=== PATIENT | male | born 1945 | race Caucasian/White ===

== ENCOUNTER 2017-05-13 19:52 | Inpatient (IN) | payer MEDICARE ==
[~2017-05-13] VITALS: Ht 177.8 cm; Wt 7.4 kg
[2017-05-13 20:30] VITALS: BP 117/71
[2017-05-13] MEDS ORDERED: MAG HYDROX/AL HYDROX/SIMETH 30 ML ORAL.SUSP PO PRN (21:45)
[2017-05-13] MEDS ORDERED: MAGNESIUM HYDROXIDE 2,400 MG/30 ML ORAL.SUSP. PO PRN (21:45)
[2017-05-13] MEDS ORDERED: ACETAMINOPHEN 325 MG TABLET PO PRN (21:45)
[2017-05-13] MEDS ORDERED: METHYL SALICYLATE/MENTHOL TOPICAL OINTMENT 29GM TUBE. TP PRN (21:45)
[2017-05-13 22:33] LABS: BASO % 1 % (0-3); EOS # 0.1 x10^3/uL (0.0-0.7); EOS % 2 % (0-3); HEMATOCRIT 37.5 % (39.0-53.0); HEMOGLOBIN 12.6 g/dL (13.0-17.5); LYMPH # 0.6 x10^3/uL (1.0-4.8); LYMPH % 14 % (24-48); MEAN CORPUSCULAR HEMOGLOBIN 32 pg (25-35); MEAN CORPUSCULAR HGB CONC 34 g/dL (31-37); MEAN CORPUSCULAR VOLUME 95 fL (79-100); MONO # 0.6 x10^3/uL (0.0-1.1); MONO % 13 % (0-9); NEUT # 3.3 x10^3uL (1.8-7.7); NEUT % 71 % (31-73); PLATELET COUNT 178 x10^3/uL (140-400); RED BLOOD COUNT 3.96 x10^6/uL (4.30-5.70); WHITE BLOOD COUNT 4.6 x10^3/uL (4.0-11.0)
[2017-05-13 22:35] LABS: ALBUMIN 2.7 g/dL (3.4-5.0); ALBUMIN/GLOBULIN RATIO 0.7 (1.0-1.7); CALCIUM 8.5 mg/dL (8.5-10.1); CREATININE 2.2 mg/dL (0.7-1.3); GFR 29.5; POTASSIUM 3.9 mmol/L (3.5-5.1); TOTAL BILIRUBIN 0.3 mg/dL (0.2-1.0); TOTAL PROTEIN 6.5 g/dL (6.4-8.2)
[2017-05-14] MEDS ORDERED: PRAV80TA2 PO (00:15)
[2017-05-14] MEDS ORDERED: QUET50TA5 PO ×2 (00:15)
[2017-05-14] MEDS ORDERED: CLON0.5T3 PO (00:15)
[2017-05-14] MEDS ORDERED: LAMO200T2 PO (00:15)
[2017-05-14] MEDS ORDERED: QUET25TA5 PO (00:15)
[2017-05-14] MEDS ORDERED: CLON1TAB3 PO (00:15)
[2017-05-14] MEDS ORDERED: SERT50TA PO (00:15)
[2017-05-14] MEDS ORDERED: LOSA25TA4 PO (00:15)
[2017-05-14] MEDS ORDERED: PRAV80TA PO (00:15)
[2017-05-14] MEDS ORDERED: QUEtiapine 25 MG TABLET. PO PRN ×2 (00:30→19:15)
[2017-05-14] MEDS: clonazePAM 1 MG TABLET PO SCH ×2 (00:50→21:22)
[2017-05-14 00:56] VITALS: BP 119/80
[2017-05-14 06:15] VITALS: BP 90/60
[2017-05-14] MEDS ORDERED: clonazePAM 0.5 MG TABLET PO SCH (09:00)
[2017-05-14] MEDS ORDERED: QUEtiapine 50 MG TABLET. PO SCH (09:00)
[2017-05-14 09:31] VITALS: BP 118/82
[2017-05-14] MEDS: SERTRALINE 25 MG TABLET. PO SCH (09:33)
[2017-05-14] MEDS: LOSARTAN 25 MG TABLET. PO SCH (09:33)
[2017-05-14] MEDS: lamoTRIgine 100 MG TABLET. PO SCH (09:33)
[2017-05-14 12:03] LABS: THYROID STIM HORMONE (TSH) 1.139 uIU/mL (0.358-3.740)
[2017-05-14 15:31] LABS: BACTERIA,URINE 0 /HPF (0-FEW); BILIRUBIN,URINE NEG (NEG); CLARITY,URINE CLEAR; COLOR,URINE STRAW; GLUCOSE,URINE NEG (NEG); NITRITE,URINE NEG (NEG); RBC,URINE 0 /HPF (0-2); SQUAMOUS EPITHELIAL CELL,UR OCC /LPF; UROBILINOGEN,URINE 0.2 mg/dL (0.2 mg/dL); WBC,URINE OCC /HPF (0-4)
[2017-05-14 16:00] VITALS: BP 103/73
[2017-05-14 18:11] LABS: T3 TOTAL 59 ng/dL (71-180); THYROXINE 4.2 ug/dL (4.5-12.0)
[2017-05-14] MEDS: CHOLECALCIFEROL (VITAMIN D3) 50,000 UNIT CAPSULE PO SCH (18:34)
[2017-05-14] MEDS ORDERED: QUEtiapine 25 MG TABLET. PO SCH (21:00)
[2017-05-14] MEDS: ATORVASTATIN CALCIUM 20 MG TABLET PO SCH (21:22)
[2017-05-14] MEDS: LURASIDONE 40 MG TABLET. PO SCH (21:22)
[2017-05-15 01:12] LABS: HEMOGLOBIN A1C 5.5 % (4.8-5.6)
[2017-05-15 06:03] VITALS: BP 118/72
[2017-05-15] MEDS: LOSARTAN 25 MG TABLET. PO SCH (08:19)
[2017-05-15] MEDS: lamoTRIgine 100 MG TABLET. PO SCH (08:19)
[2017-05-15] MEDS: SERTRALINE 25 MG TABLET. PO SCH (08:20)
--- NOTE | 2017-05-15 13:08 | CONS ---
DATE OF CONSULTATION: 05/14/2017 REASON FOR CONSULTATION: Medical management. HISTORY OF PRESENT ILLNESS: The patient is a 71-year-old male patient with gary, who apparently was seen in [facility]. Apparently, he is very unstable and his episode might have been started with prednisone that was given to him in 04/29/5017 or maybe changed his medication. Basically, he was evaluated at the [facility] and from there he was transferred [facility] for inpatient psychiatric stabilization. He apparently was living at home and has been manic, rambling his thoughts, upset, agitated regarding family business, cursing, recently tapered off prednisone, voices self-harm. PAST MEDICAL HISTORY: Significant for chronic renal insufficiency related to treatment with lithium, type 2 diabetes, hypertension, urine hesitancy. PAST SURGICAL HISTORY: Significant for decompressive laminectomy of L4-L5 and L5-S1 with interspinous fixation on 03/23/2017. PAST PSYCHIATRIC HISTORY: Significant for bipolar disorder. ALLERGIES: He is allergic to BACTRIM and TEGRETOL. FAMILY HISTORY: Significant for Alzheimer's disease in his father. His mother had ovarian cancer and congestive heart failure. His siblings are healthy as far as he knows. SOCIAL HISTORY: He is , does not smoke. Drinks alcohol rarely and does not use any recreational drugs. REVIEW OF SYSTEMS: As per history of present illness. MEDICATIONS: He is currently on following medications: Clonazepam 0.5 mg daily, clonazepam 1 mg at bedtime, lamotrigine 200 mg daily, losartan potassium 25 mg daily, pravastatin 80 mg at bedtime, quetiapine fumarate 50 mg daily, quetiapine fumarate 75 mg at bedtime and quetiapine 25 mg every 6 hours as needed, sertraline 75 mg daily. PHYSICAL EXAMINATION: GENERAL: When I examined him, he was sitting on the edge of the bed comfortably, in no apparent respiratory distress, pale, but no jaundice, cyanosis, or thyromegaly. No jugular venous distension. No limb edema. VITAL SIGNS: His heart rate was 74, blood pressure was 103/73, temperature was 98.1, respiratory rate was 16, and oxygen saturation was 98%. HEAD, EYES, EARS, NOSE, AND THROAT: Showed normocephalic, atraumatic. NECK: Supple. HEART: Showed normal first and second sounds. No gallop, rub or murmur. CHEST: Clear to auscultation. No crepitation or rhonchi. ABDOMEN: Distended, soft, nontender. No guarding or rigidity. No organomegaly. Hernial orifice intact. Bowel sounds normal. NEUROLOGIC: He is awake, alert, responding appropriately. All cranial nerves intact. EXTREMITIES: He moves all extremities without difficulty, ambulates without assistance or assistive devices. LABORATORY DATA: Showed a white cell count of 4600, hemoglobin 12.6, hematocrit 37.5, MCV 95 and platelet count 278,000. His chemistry showed a serum sodium 135, potassium 3.9, chloride 101, bicarbonate 25, anion gap of 9, BUN 45, creatinine 2.2, estimated GFR was 29 mL per minute. His glucose 94, calcium was 8.5, magnesium 2. Serum iron 20, TIBC 153, percent saturation 13. Total bilirubin, AST, ALT, alkaline phosphatase were normal. Total protein 6.7, albumin 2.7. His triglycerides were 109, total cholesterol 108, LDL was 62, VLDL was 21, HDL was 25 and the ratio was 4. His vitamin D was 521 pg/mL and 25-hydroxyvitamin was 24, which is low. TSH was 1.39. Urinalysis was essentially unremarkable. IMPRESSION: In summary, this is a 71-year-old male patient who is apparently manic and he is stable. He was [facility]. He has multiple medical problems including chronic renal insufficiency related to lithium toxicity. He is known to have type 2 diabetes, apparently diet controlled; hypertension; urinary hesitancy. All his vital signs seemed to be stable. Apart from vitamin D and deficiency and chronic renal disease, the patient seems to be stable. His hemoglobin A1c is not available yet and his blood sugar seems to be within acceptable range. I have started him on ergocalciferol 50,000 units once a week. We will follow with his lab work and make any necessary recommendation. Thank you, Dr. Quintanilla for allowing me to participate in the care of this patient. SHENA VILLA MD DR: OMARI/lore JOB#: [id number] / [id number]
[2017-05-15 16:03] VITALS: BP 107/71
--- NOTE | 2017-05-15 17:24 | PSYEV ---
DATE OF SERVICE: 05/14/2017 PSYCHIATRIC EVALUATION REASON FOR ADMISSION: This 71-year-old male was admitted to [facility] from [facility]. Apparently, he was living at home with his . The patient apparently was exhibiting manic symptoms, traveling, racing thoughts, visual and auditory hallucinations and increased confusion. The patient recently was on prednisone, which was tapered off. The patient also expressed thoughts of self-harm. HISTORY OF PRESENT ILLNESS: The patient admits he had a diagnosis of manic depression, diagnosed about 30 years ago, apparently was hospitalized after he had a manic episode and he was on lithium at least for 10 years and become lithium toxic. Apparently, they had to discontinue and start him on Lamictal. The patient states he had done fairly well without any problems and recently he admits to having problems with insomnia, not sleeping, very typical of his past episode where every 2 minutes, he has to be awake because his mind was racing all the time. The patient also admitted to hearing voices, mostly lutheran music in his head that he could not turn off. The patient is also having some visual hallucinations, paranoia, brief periods of loss of touch with reality. The patient states he went without sleep for several days. PAST PSYCHIATRIC HISTORY: One prior hospitalization, but patient is unable to name the hospital. It was about 30 years ago and that was the time he was diagnosed with bipolar disorder. 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 The patient denies of any suicidal thoughts at this time. CURRENT MEDICATIONS: Klonopin, according to him, he has been taking up to 2.5 mg daily at least for the past 5 years. Zoloft 75 mg daily, Seroquel 75 mg daily, and Lamictal 200 mg daily. ALLERGIES: The patient also stated that he was allergic to TEGRETOL. PAST MEDICAL HISTORY: History of diabetes, diet controlled; hypertension, chronic renal insufficiency, and generalized muscular pain. PSYCHOSOCIAL HISTORY: The patient is from [place] and states he has high school education. 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 The patient denies of any major trauma in his childhood. The patient describes himself as a perfectionist and he has certain ritual behaviors. The patient has always had problems with racing thoughts. The patient has 4 siblings and according to him, no one diagnosed with bipolar disorder. The patient admits to drinking occasionally in his early years, but never had any problems. The patient claims still working in the form. FAMILY HISTORY: As stated above. No history of alcoholism. No history of bipolar disorder. No history of suicide in the family. MENTAL STATUS EXAMINATION: The patient appeared to be of his stated age, casually dressed, has some problems with hearing, has hearing aids. His vision is normal. The patient did not show any involuntary movements. His behavior was appropriate except at times he was somewhat irritable and restless. His speech is clear, spontaneous with normal rate and rhythm. His affect and mood showed he is very anxious, worried, able to identify some of his problems, stating that his problem started with loss of sleep, he was getting more confused and started having hallucinations, both auditory and visual. Denies of having any suicidal or homicidal thoughts at this time. His speech was normal. The patient admits to hearing lutheran music continuously in his head, having difficulty dealing with that. The patient also admits to being irritable, espinoza, low frustration tolerance. The patient is oriented to time, place and person. His short term memory is intact, able to recall 3 objects in 5 minutes. His long-term memory is also intact including he was able to state that he was at [facility] for 17 days, 30 years ago for a manic episode. The patient was able to give a clear account of his past medical history. The patient's judgment fair. Insight fair. Strength fairly in good health, good communication skills, supportive family. DIAGNOSES: AXIS I: Bipolar disorder type 1, manic with psychotic symptoms. AXIS II: None. AXIS III: Hypertension, chronic renal insufficiency, diabetes, diet controlled and recently took prednisone and was tapered off. INITIAL TREATMENT PLAN: The patient will have a physical exam, routine lab work including CBC, chem profile, urinalysis. The patient will be encouraged to attend all the activities. The patient's Klonopin to be decreased to 1 mg at night. The patient will be taken off his Seroquel 75 mg and started on Latuda 40 mg at night. Continue on the Zoloft 75 mg daily. The patient was seen by the psychiatrist daily. DISCHARGE CRITERIA: The patient will be under observation. We will adjust the medication accordingly and the patient will be considered for discharge or return home 3 days of continuous stability and without any manic symptoms or psychosis. KASH CATES MD DR: RUSTAM/nts JOB#: [id number] / [id number]
--- NOTE | 2017-05-15 18:44 | OP ---
DATE OF SURGERY: 05/15/2017 SUBJECTIVE: The patient was seen today, met with the staff, chart reviewed. The patient has been staying in the room most of the time, less confused. The patient able to describe some of his problems including racing thoughts, not able to think clearly, and also not sleeping at all, and also being delusional and paranoid, including auditory hallucinations. The patient admits that some of his problems have improved. OBSERVATION: The vital signs are stable. The patient is not having any side effects from the medications. No major physical complaints. The patient is participating in activities. His appetite has improved. The patient continues to be on Seroquel 25 mg q.4 hours p.r.n., Lamictal 200 mg daily, Zoloft 75 mg at night, clonazepam 1 mg at night, considering starting the patient on Latuda. LABORATORY DATA: The patient's lab reviewed. Hemoglobin of 12.6. The patient's low iron, BUN 45, creatinine 2.2, sodium was 135. The patient is not having any other physical complaints. ASSESSMENT: Bipolar disorder, manic, severe with psychotic symptoms. PLAN: To continue with the treatment. We will consider starting him on Latuda. KASH CATES MD DR: RUSTAM/lore JOB#: [id number] / [id number]
[2017-05-15] MEDS: clonazePAM 1 MG TABLET PO SCH (19:19)
[2017-05-15] MEDS: ATORVASTATIN CALCIUM 20 MG TABLET PO SCH (19:19)
[2017-05-15] MEDS: LURASIDONE 40 MG TABLET. PO SCH (19:19)
[2017-05-15] MEDS ORDERED: LURASIDONE 40 MG TABLET. PO SCH (21:00)
[2017-05-16 06:08] VITALS: BP 121/75
[2017-05-16] MEDS: SERTRALINE 25 MG TABLET. PO SCH (08:59)
[2017-05-16] MEDS: lamoTRIgine 100 MG TABLET. PO SCH (08:59)
[2017-05-16] MEDS: LOSARTAN 25 MG TABLET. PO SCH (09:00)
--- NOTE | 2017-05-16 14:04 | PN ---
DATE: 05/15/2017 NO DICTATION. KASH CATES MD DR: Samia JOB#: [id number] / [id number]
[2017-05-16 16:03] VITALS: BP 118/79
[2017-05-16] MEDS: ATORVASTATIN CALCIUM 20 MG TABLET PO SCH (19:47)
[2017-05-16] MEDS: clonazePAM 1 MG TABLET PO SCH (19:48)
[2017-05-16] MEDS: LURASIDONE 40 MG TABLET. PO SCH (20:03)
[2017-05-17 06:13] VITALS: BP 122/62
[2017-05-17] MEDS: lamoTRIgine 100 MG TABLET. PO SCH (09:27)
[2017-05-17] MEDS: LOSARTAN 25 MG TABLET. PO SCH (09:27)
[2017-05-17] MEDS: SERTRALINE 25 MG TABLET. PO SCH (09:33)
--- NOTE | 2017-05-17 11:27 | PN ---
DATE: 05/16/2017 SUBJECTIVE: The patient was seen today, met with the staff, chart reviewed. The patient's dictation for the progress note yesterday was last ____ on the medical records. Therefore, it is the report both for 05/16/2017 and 05/17/2017. The patient's problem also discussed with the staff, treatment review completed. I also spoke with his . The patient continues to show improvement. She is less anxious and tense, still having racing thoughts and having some difficulty with sleep. OBSERVATION: VITAL SIGNS: Temperature 97.9, blood pressure 121/75, pulse 61, respirations 16, O2 saturation 99%. Slept about 6 hours last night. The patient is not presenting with any major physical problems at this time. LABORATORY DATA: The patient's lab reviewed, no changes. The patient's BUN was 45, creatinine was 2.2. MEDICATIONS: The patient's current medications include Lipitor 20 mg daily, Seroquel 25 mg q. 4 hours p.r.n., Lamictal 200 mg daily, Zoloft 75 mg daily, clonazepam 1 mg at night. The patient ____. The patient did not have any falls. ASSESSMENT: Bipolar disorder type 1, manic, with psychotic symptoms. Plan is to continue with the treatment. KASH CATES MD DR: RUSTAM/lore JOB#: [id number] / [id number]
[2017-05-17 15:27] VITALS: BP 134/81
[2017-05-17] MEDS: LURASIDONE 40 MG TABLET. PO SCH (19:49)
[2017-05-17] MEDS: ATORVASTATIN CALCIUM 20 MG TABLET PO SCH (19:49)
[2017-05-17] MEDS: clonazePAM 1 MG TABLET PO SCH (19:49)
[2017-05-18 06:17] VITALS: BP 113/66
[2017-05-18 09:27] LABS: BASO # 0.1 x10^3/uL (0.0-0.2); BASO % 1 % (0-3); EOS # 0.2 x10^3/uL (0.0-0.7); EOS % 4 % (0-3); HEMATOCRIT 36.8 % (39.0-53.0); HEMOGLOBIN 12.4 g/dL (13.0-17.5); LYMPH # 1.2 x10^3/uL (1.0-4.8); LYMPH % 25 % (24-48); MEAN CORPUSCULAR HEMOGLOBIN 32 pg (25-35); MEAN CORPUSCULAR HGB CONC 34 g/dL (31-37); MEAN CORPUSCULAR VOLUME 94 fL (79-100); MONO # 0.4 x10^3/uL (0.0-1.1); MONO % 9 % (0-9); NEUT # 2.8 x10^3uL (1.8-7.7); NEUT % 61 % (31-73); PLATELET COUNT 231 x10^3/uL (140-400); RED CELL DISTRIBUTION WIDTH 12.7 % (11.5-14.5); WHITE BLOOD COUNT 4.6 x10^3/uL (4.0-11.0)
[2017-05-18] MEDS: SERTRALINE 25 MG TABLET. PO SCH (09:29)
[2017-05-18] MEDS: lamoTRIgine 100 MG TABLET. PO SCH (09:29)
[2017-05-18 09:37] LABS: ALBUMIN 2.9 g/dL (3.4-5.0); ALBUMIN/GLOBULIN RATIO 0.8 (1.0-1.7); CALCIUM 8.7 mg/dL (8.5-10.1); CREATININE 1.8 mg/dL (0.7-1.3); GFR 37.2; POTASSIUM 4.3 mmol/L (3.5-5.1); TOTAL BILIRUBIN 0.3 mg/dL (0.2-1.0); TOTAL PROTEIN 6.4 g/dL (6.4-8.2)
[2017-05-18 12:23] VITALS: BP 129/77
[2017-05-18] MEDS: LOSARTAN 25 MG TABLET. PO SCH (12:29)
--- NOTE | 2017-05-18 14:45 | PN ---
DATE: 05/17/2017 SUBJECTIVE: The patient was seen today, met with the staff, chart reviewed. The patient continues to show improvement, had some difficulty with sleep, still having some racing thoughts, but overall improved. Staff reports no major problems. OBSERVATION: VITAL SIGNS: Temperature 97.2, blood pressure 122/62, pulse 57, respirations 16, O2 sat 96%. Slept about 6 hours last night. The patient's appetite is fair. The patient is able to walk. The patient denies of any falls. MEDICATIONS: Reviewed. No side effects. Currently on Seroquel 25 mg q. 4 hours p.r.n., Lamictal 200 mg daily, Zoloft 75 mg daily, Klonopin 1 mg at night and Latuda 40 mg at night. The patient denies of any other physical complaints. ASSESSMENT: Bipolar disorder type 1, manic with psychotic symptoms. PLAN: To continue with the treatment. KASH CATES MD DR: RUSTAM/lore JOB#: [id number] / [id number]
[2017-05-18 15:56] VITALS: BP 110/72
[2017-05-18] MEDS: ATORVASTATIN CALCIUM 20 MG TABLET PO SCH (20:06)
[2017-05-18] MEDS: clonazePAM 1 MG TABLET PO SCH (20:06)
[2017-05-18] MEDS: LURASIDONE 40 MG TABLET. PO SCH (20:06)
[2017-05-19 06:15] VITALS: BP 117/69
[2017-05-19] MEDS: LOSARTAN 25 MG TABLET. PO SCH (09:00)
[2017-05-19] MEDS: SERTRALINE 25 MG TABLET. PO SCH (09:12)
[2017-05-19] MEDS: lamoTRIgine 100 MG TABLET. PO SCH (09:12)
[2017-05-19 16:24] VITALS: BP 120/65
[2017-05-19] MEDS: LURASIDONE 40 MG TABLET. PO SCH (19:45)
[2017-05-19] MEDS: ATORVASTATIN CALCIUM 20 MG TABLET PO SCH (19:46)
[2017-05-19] MEDS: clonazePAM 1 MG TABLET PO SCH (19:46)
--- NOTE | 2017-05-19 20:09 | PDOC ---
Exam Note: Luis Eduardo Note: Please also refer to the separate dictated note~for this date of service dictated separately.~Patient seen individually. Discussed the patient with Nursing staff reviewed the chart.~Reviewed interim history and current functioning. Reviewed vital signs,~Labs/ Radiology~and current medications noted below. Continue current treatment with the changes noted in the dictated addendum note Assessment: Vital Signs: Vital Signs Date Time Temp Pulse Resp B/P (MAP) Pulse Ox O2 Delivery O2 Flow Rate FiO2 05/19/17 16:24 98.1 68 16 120/65 (83) 98 05/19/17 06:15 Room Air I&O Intake and Output 05/19/17 07:00 Intake Total 1080 ml Balance 1080 ml Intake Oral 1080 ml # Voids 2 Current Medications: Meds: Current Medications Acetaminophen (Tylenol) 650 mg PRN Q6HRS PRN PO PAIN / TEMP; Start 05/13/17 at 21:45 Multi-Ingredient Ointment (Analgesic Mulberry) 1 chris PRN QID PRN TP MUSCLE PAIN; Start 05/13/17 at 21:45 Al Hydroxide/Mg Hydroxide (Mylanta Plus Xs) 15 ml PRN AFTMEALHC PRN PO DYSPEPSIA; Start 05/13/17 at 21:45 Magnesium Hydroxide (Milk Of Magnesia) 2,400 mg PRN QHS PRN PO CONSTIPATION; Start 05/13/17 at 21:45 Losartan Potassium (Cozaar) 25 mg DAILY PO Last administered on 05/17/17at 09:27 ; Start 05/14/17 at 09:00 Atorvastatin Calcium (Lipitor) 20 mg HS PO Last administered on 05/19/17at 19:46 ; Start 05/14/17 at 21:00 Clonazepam (KlonoPIN) 0.5 mg DAILY PO Last administered on 05/14/17at 09:33; Start 05/14/17 at 09:00; Stop 05/14/17 at 19:12; Status DC Clonazepam (KlonoPIN) 1 mg QHS PO Last administered on 05/19/17at 19:46; Start at 01:00 Quetiapine Fumarate (SEROquel) 25 mg PRN Q6HRS PRN PO ANXIETY / AGITATION; Start 05/14/17 at 00:30; Stop 05/14/17 at 19:12; Status DC Quetiapine Fumarate (SEROquel) 50 mg DAILY PO Last administered on 05/14/17at 09 :33; Start 05/14/17 at 09:00; Stop 05/14/17 at 19:12; Status DC Quetiapine Fumarate (SEROquel) 75 mg QHS PO ; Start 05/14/17 at 21:00; Stop at 21:00; Status DC Sertraline HCl (Zoloft) 75 mg DAILY PO Last administered on 05/19/17at 09:12; Start 05/14/17 at 09:00 Lamotrigine (LaMICtal) 200 mg DAILY PO Last administered on 05/19/17at 09:12; Start 05/14/17 at 09:00; Stop 05/19/17 at 20:05; Status DC Vitamin D (Vitamin D3) 50,000 unit WEEKLY PO Last administered on 05/14/17at 18: 34; Start 05/14/17 at 18:00 Quetiapine Fumarate (SEROquel) 25 mg PRN Q4HRS PRN PO ANXIETY / AGITATION; Start 05/14/17 at 19:15 Ferrous Sulfate (Feosol) 325 mg DAILYWBKFT PO ; Start 05/20/17 at 08:00 Lamotrigine (LaMICtal) 150 mg DAILY PO ; Start 05/20/17 at 09:00 Lamotrigine (LaMICtal) 100 mg DAILY PO ; Start 05/20/17 at 09:00 Quetiapine Fumarate (SEROquel) 50 mg QHS PO ; Start 05/19/17 at 21:00 Active Scripts Active Reported Pravachol (Pravastatin Sodium) 80 Mg Tablet 80 Mg PO DAILY Seroquel (Quetiapine Fumarate) 25 Mg Tablet 25 Mg PO PRN Q6HRS PRN Seroquel (Quetiapine Fumarate) 50 Mg Tablet 75 Mg PO QHS Seroquel (Quetiapine Fumarate) 50 Mg Tablet 50 Mg PO DAILY Zoloft (Sertraline Hcl) 50 Mg Tablet 75 Mg PO DAILY Losartan Potassium 25 Mg Tablet 25 Mg PO DAILY Lamotrigine 200 Mg Tablet 200 Mg PO DAILY Clonazepam 1 Mg Tablet 1 Mg PO QHS Clonazepam 0.5 Mg Tablet 0.5 Mg PO DAILY I have reviewed the current psychotropics carefully including drug interactions. Risk benefit ratio favors no change other than as noted in my dictated progress note. Diagnosis: Problems: (1) Bipolar disorder, mixed (2) Bipolar affective, mixed, severe (3) Anxiety disorder LIZA JUSTIN MD May 19, 2017 20:09
[2017-05-19] MEDS: QUEtiapine 50 MG TABLET. PO SCH (20:13)
[2017-05-20 06:10] VITALS: BP 127/72
[2017-05-20] MEDS: SERTRALINE 25 MG TABLET. PO SCH (07:47)
[2017-05-20] MEDS: LOSARTAN 25 MG TABLET. PO SCH (07:47)
[2017-05-20] MEDS: FERROUS SULFATE 325 MG TABLET. PO SCH (07:49)
[2017-05-20] MEDS: lamoTRIgine 150 MG TABLET. PO SCH (07:49)
[2017-05-20] MEDS: lamoTRIgine 100 MG TABLET. PO SCH (07:49)
[2017-05-20 16:28] VITALS: BP 151/84
[2017-05-20] MEDS: clonazePAM 1 MG TABLET PO SCH (20:21)
[2017-05-20] MEDS: QUEtiapine 50 MG TABLET. PO SCH (20:21)
[2017-05-20] MEDS: ATORVASTATIN CALCIUM 20 MG TABLET PO SCH (20:21)
--- NOTE | 2017-05-20 21:20 | PDOC ---
Exam Note: Luis Eduardo Note: Please also refer to the separate dictated note~for this date of service dictated separately.~Patient seen individually. Discussed the patient with Nursing staff reviewed the chart.~Reviewed interim history and current functioning. Reviewed vital signs,~Labs/ Radiology~and current medications noted below. Continue current treatment with the changes noted in the dictated addendum note Assessment: Vital Signs: Vital Signs Date Time Temp Pulse Resp B/P (MAP) Pulse Ox O2 Delivery O2 Flow Rate FiO2 05/20/17 16:28 97.4 58 18 151/84 (106) 99 05/19/17 06:15 Room Air I&O Intake and Output 05/20/17 07:00 Intake Total 1560 ml Balance 1560 ml Intake Oral 1560 ml # Voids 1 Current Medications: Meds: Current Medications Acetaminophen (Tylenol) 650 mg PRN Q6HRS PRN PO PAIN / TEMP; Start 05/13/17 at 21:45 Multi-Ingredient Ointment (Analgesic Misenheimer) 1 chris PRN QID PRN TP MUSCLE PAIN; Start 05/13/17 at 21:45 Al Hydroxide/Mg Hydroxide (Mylanta Plus Xs) 15 ml PRN AFTMEALHC PRN PO DYSPEPSIA; Start 05/13/17 at 21:45 Magnesium Hydroxide (Milk Of Magnesia) 2,400 mg PRN QHS PRN PO CONSTIPATION; Start 05/13/17 at 21:45 Losartan Potassium (Cozaar) 25 mg DAILY PO Last administered on 05/20/17at 07:47 ; Start 05/14/17 at 09:00 Atorvastatin Calcium (Lipitor) 20 mg HS PO Last administered on 05/20/17at 20:21 ; Start 05/14/17 at 21:00 Clonazepam (KlonoPIN) 0.5 mg DAILY PO Last administered on 05/14/17at 09:33; Start 05/14/17 at 09:00; Stop 05/14/17 at 19:12; Status DC Clonazepam (KlonoPIN) 1 mg QHS PO Last administered on 05/20/17at 20:21; Start at 01:00 Quetiapine Fumarate (SEROquel) 25 mg PRN Q6HRS PRN PO ANXIETY / AGITATION; Start 05/14/17 at 00:30; Stop 05/14/17 at 19:12; Status DC Quetiapine Fumarate (SEROquel) 50 mg DAILY PO Last administered on 05/14/17at 09 :33; Start 05/14/17 at 09:00; Stop 05/14/17 at 19:12; Status DC Quetiapine Fumarate (SEROquel) 75 mg QHS PO ; Start 05/14/17 at 21:00; Stop at 21:00; Status DC Sertraline HCl (Zoloft) 75 mg DAILY PO Last administered on 05/20/17at 07:47; Start 05/14/17 at 09:00 Lamotrigine (LaMICtal) 200 mg DAILY PO Last administered on 05/19/17at 09:12; Start 05/14/17 at 09:00; Stop 05/19/17 at 20:05; Status DC Vitamin D (Vitamin D3) 50,000 unit WEEKLY PO Last administered on 05/14/17at 18: 34; Start 05/14/17 at 18:00 Quetiapine Fumarate (SEROquel) 25 mg PRN Q4HRS PRN PO ANXIETY / AGITATION; Start 05/14/17 at 19:15 Ferrous Sulfate (Feosol) 325 mg DAILYWBKFT PO Last administered on 05/20/17at 07: 49; Start 05/20/17 at 08:00 Lamotrigine (LaMICtal) 150 mg DAILY PO Last administered on 05/20/17at 07:49; Start 05/20/17 at 09:00 Lamotrigine (LaMICtal) 100 mg DAILY PO Last administered on 05/20/17at 07:49; Start 05/20/17 at 09:00 Quetiapine Fumarate (SEROquel) 50 mg QHS PO Last administered on 05/20/17at 20:21 ; Start 05/19/17 at 21:00 Active Scripts Active Reported Pravachol (Pravastatin Sodium) 80 Mg Tablet 80 Mg PO DAILY Seroquel (Quetiapine Fumarate) 25 Mg Tablet 25 Mg PO PRN Q6HRS PRN Seroquel (Quetiapine Fumarate) 50 Mg Tablet 75 Mg PO QHS Seroquel (Quetiapine Fumarate) 50 Mg Tablet 50 Mg PO DAILY Zoloft (Sertraline Hcl) 50 Mg Tablet 75 Mg PO DAILY Losartan Potassium 25 Mg Tablet 25 Mg PO DAILY Lamotrigine 200 Mg Tablet 200 Mg PO DAILY Clonazepam 1 Mg Tablet 1 Mg PO QHS Clonazepam 0.5 Mg Tablet 0.5 Mg PO DAILY I have reviewed the current psychotropics carefully including drug interactions. Risk benefit ratio favors no change other than as noted in my dictated progress note. Diagnosis: Problems: (1) Bipolar disorder, mixed (2) Bipolar affective, mixed, severe (3) Anxiety disorder LIZA JUSTIN MD May 20, 2017 21:20
--- NOTE | 2017-05-21 05:15 | PN ---
DATE: 05/19/2017 PSYCHIATRIC PROGRESS NOTE HISTORY OF PRESENT ILLNESS: This is a late entry of 05/19/2017 covers elements not covered in my initial note of 05/19/2017. This is the first visit with my patient and the hospitalist, Dr. Zuñiga covered for him over the past few days. Reviewed his history at length. History is reflective of bipolar disorder and he was admitted with increased confusion and rambling thoughts, being manic. REVIEW OF SYSTEMS: No CV, , pulmonary, eye, ENT system symptoms on review. MENTAL STATUS EXAM: Reasonably oriented. Speech coherent, rapid at times. Abstraction fair, computation impaired, language function intact. Mood and affect remain somewhat labile. I have known the patient in the past since I had seen him as an outpatient several years ago. IMPRESSION: Bipolar 1 disorder, mixed. Rest unchanged. PLAN: Lamotrigine 200 mg a day will be increased to 250 mg a day. Latuda is going to cost him about 600 Dollars a month. He is unable to afford this. We will change to Seroquel 50 mg at bedtime. Continue Zoloft, Klonopin for now. MAN Uma JUSTIN MD DR: KARI/lore JOB#: [id number] / [id number]
[2017-05-21 05:53] VITALS: BP 145/70
[2017-05-21] MEDS: lamoTRIgine 100 MG TABLET. PO SCH (08:25)
[2017-05-21] MEDS: LOSARTAN 25 MG TABLET. PO SCH (08:25)
[2017-05-21] MEDS: FERROUS SULFATE 325 MG TABLET. PO SCH (08:25)
[2017-05-21] MEDS: lamoTRIgine 150 MG TABLET. PO SCH (08:25)
[2017-05-21] MEDS: SERTRALINE 25 MG TABLET. PO SCH (08:26)
[2017-05-21] MEDS: CHOLECALCIFEROL (VITAMIN D3) 50,000 UNIT CAPSULE PO SCH (08:27)
[2017-05-21 15:52] VITALS: BP 131/81
[2017-05-21] MEDS: ATORVASTATIN CALCIUM 20 MG TABLET PO SCH (19:40)
[2017-05-21] MEDS: QUEtiapine 50 MG TABLET. PO SCH (19:40)
[2017-05-21] MEDS: clonazePAM 1 MG TABLET PO SCH (19:41)
--- NOTE | 2017-05-21 20:16 | PDOC ---
Exam Note: Luis Eduardo Note: Please also refer to the separate dictated note~for this date of service dictated separately.~Patient seen individually. Discussed the patient with Nursing staff reviewed the chart.~Reviewed interim history and current functioning. Reviewed vital signs,~Labs/ Radiology~and current medications noted below. Continue current treatment with the changes noted in the dictated addendum note Assessment: Vital Signs: Vital Signs Date Time Temp Pulse Resp B/P (MAP) Pulse Ox O2 Delivery O2 Flow Rate FiO2 05/21/17 15:52 98.4 65 16 131/81 (98) 96 05/19/17 06:15 Room Air I&O Intake and Output 05/21/17 07:00 Intake Total 1560 ml Balance 1560 ml Intake Oral 1560 ml Current Medications: Meds: Current Medications Acetaminophen (Tylenol) 650 mg PRN Q6HRS PRN PO PAIN / TEMP; Start 05/13/17 at 21:45 Multi-Ingredient Ointment (Analgesic [place]) 1 chris PRN QID PRN TP MUSCLE PAIN; Start 05/13/17 at 21:45 Al Hydroxide/Mg Hydroxide (Mylanta Plus Xs) 15 ml PRN AFTMEALHC PRN PO DYSPEPSIA; Start 05/13/17 at 21:45 Magnesium Hydroxide (Milk Of Magnesia) 2,400 mg PRN QHS PRN PO CONSTIPATION; Start 05/13/17 at 21:45 Losartan Potassium (Cozaar) 25 mg DAILY PO Last administered on 05/21/17at 08:25 ; Start 05/14/17 at 09:00 Atorvastatin Calcium (Lipitor) 20 mg HS PO Last administered on 05/21/17at 19:40 ; Start 05/14/17 at 21:00 Clonazepam (KlonoPIN) 0.5 mg DAILY PO Last administered on 05/14/17at 09:33; Start 05/14/17 at 09:00; Stop 05/14/17 at 19:12; Status DC Clonazepam (KlonoPIN) 1 mg QHS PO Last administered on 05/21/17at 19:41; Start at 01:00 Quetiapine Fumarate (SEROquel) 25 mg PRN Q6HRS PRN PO ANXIETY / AGITATION; Start 05/14/17 at 00:30; Stop 05/14/17 at 19:12; Status DC Quetiapine Fumarate (SEROquel) 50 mg DAILY PO Last administered on 05/14/17at 09 :33; Start 05/14/17 at 09:00; Stop 05/14/17 at 19:12; Status DC Quetiapine Fumarate (SEROquel) 75 mg QHS PO ; Start 05/14/17 at 21:00; Stop at 21:00; Status DC Sertraline HCl (Zoloft) 75 mg DAILY PO Last administered on 05/21/17at 08:26; Start 05/14/17 at 09:00; Stop 05/21/17 at 18:36; Status DC Lamotrigine (LaMICtal) 200 mg DAILY PO Last administered on 05/19/17at 09:12; Start 05/14/17 at 09:00; Stop 05/19/17 at 20:05; Status DC Vitamin D (Vitamin D3) 50,000 unit WEEKLY PO Last administered on 05/21/17at 08: 27; Start 05/14/17 at 18:00 Quetiapine Fumarate (SEROquel) 25 mg PRN Q4HRS PRN PO ANXIETY / AGITATION; Start 05/14/17 at 19:15 Ferrous Sulfate (Feosol) 325 mg DAILYWBKFT PO Last administered on 05/21/17at 08: 25; Start 05/20/17 at 08:00 Lamotrigine (LaMICtal) 150 mg DAILY PO Last administered on 05/21/17at 08:25; Start 05/20/17 at 09:00 Lamotrigine (LaMICtal) 100 mg DAILY PO Last administered on 05/21/17at 08:25; Start 05/20/17 at 09:00 Quetiapine Fumarate (SEROquel) 50 mg QHS PO Last administered on 05/21/17at 19:40 ; Start 05/19/17 at 21:00 Fluvoxamine Maleate (Luvox) 25 mg DAILY PO ; Start 05/22/17 at 09:00; Stop at 08:59 Fluvoxamine Maleate (Luvox) 50 mg DAILY PO ; Start 05/24/17 at 09:00 Active Scripts Active Reported Pravachol (Pravastatin Sodium) 80 Mg Tablet 80 Mg PO DAILY Seroquel (Quetiapine Fumarate) 25 Mg Tablet 25 Mg PO PRN Q6HRS PRN Seroquel (Quetiapine Fumarate) 50 Mg Tablet 75 Mg PO QHS Seroquel (Quetiapine Fumarate) 50 Mg Tablet 50 Mg PO DAILY Zoloft (Sertraline Hcl) 50 Mg Tablet 75 Mg PO DAILY Losartan Potassium 25 Mg Tablet 25 Mg PO DAILY Lamotrigine 200 Mg Tablet 200 Mg PO DAILY Clonazepam 1 Mg Tablet 1 Mg PO QHS Clonazepam 0.5 Mg Tablet 0.5 Mg PO DAILY I have reviewed the current psychotropics carefully including drug interactions. Risk benefit ratio favors no change other than as noted in my dictated progress note. Diagnosis: Problems: (1) Bipolar disorder, mixed (2) Bipolar affective, mixed, severe (3) Anxiety disorder LIZA JUSTIN MD May 21, 2017 20:16
--- NOTE | 2017-05-21 23:14 | PN ---
DATE: 05/20/2017 This is a late entry for 05/20/2017 and covers elements not covered in my initial note of 05/20/2017. I met with the patient the evening of 05/20/2017. The patient has been somewhat more social, attending the exercise group. Latuda was changed to Seroquel. I met with him in his room. Discussed his psychosocial stressors, conflicts with his sister at great length. He is verbal, interactive, still depressed. REVIEW OF SYSTEMS: No CV, , pulmonary, eye system symptoms on review. MENTAL STATUS EXAM: Reasonably oriented. Speech is coherent, abstraction fair, computation impaired, language function intact. Attention span short. No suicidal or homicidal ideation. He is quite obsessive, and admits to this. LABORATORY DATA: Reviewed. IMPRESSION: Bipolar 1 disorder, mixed; anxiety disorder, unspecified. PLAN: Continue Klonopin, Zoloft along with increased Lamictal and the Seroquel for now. Consider changing Zoloft to Luvox for OCD symptoms. MAN Uma JUSTIN MD DR: KARI/lore JOB#: [id number] / [id number]
[2017-05-22 06:16] VITALS: BP 104/68
[2017-05-22] MEDS: lamoTRIgine 100 MG TABLET. PO SCH (09:32)
[2017-05-22] MEDS: lamoTRIgine 150 MG TABLET. PO SCH (09:32)
[2017-05-22] MEDS: LOSARTAN 25 MG TABLET. PO SCH (09:32)
[2017-05-22] MEDS: FERROUS SULFATE 325 MG TABLET. PO SCH (09:32)
[2017-05-22 16:15] VITALS: BP 122/77
--- NOTE | 2017-05-22 19:16 | PDOC ---
Exam Note: Luis Eduardo Note: Please also refer to the separate dictated note~for this date of service dictated separately.~Patient seen individually. Discussed the patient with Nursing staff reviewed the chart.~Reviewed interim history and current functioning. Reviewed vital signs,~Labs/ Radiology~and current medications noted below. Continue current treatment with the changes noted in the dictated addendum note Assessment: Vital Signs: Vital Signs Date Time Temp Pulse Resp B/P (MAP) Pulse Ox O2 Delivery O2 Flow Rate FiO2 05/22/17 16:15 98.5 72 18 122/77 (92) 100 05/19/17 06:15 Room Air I&O Intake and Output 05/22/17 07:00 Intake Total 1680 ml Balance 1680 ml Intake Oral 1680 ml Current Medications: Meds: Current Medications Acetaminophen (Tylenol) 650 mg PRN Q6HRS PRN PO PAIN / TEMP; Start 05/13/17 at 21:45 Multi-Ingredient Ointment (Analgesic [place]) 1 chris PRN QID PRN TP MUSCLE PAIN; Start 05/13/17 at 21:45 Al Hydroxide/Mg Hydroxide (Mylanta Plus Xs) 15 ml PRN AFTMEALHC PRN PO DYSPEPSIA; Start 05/13/17 at 21:45 Magnesium Hydroxide (Milk Of Magnesia) 2,400 mg PRN QHS PRN PO CONSTIPATION; Start 05/13/17 at 21:45 Losartan Potassium (Cozaar) 25 mg DAILY PO Last administered on 05/22/17at 09:32 ; Start 05/14/17 at 09:00 Atorvastatin Calcium (Lipitor) 20 mg HS PO Last administered on 05/21/17at 19:40 ; Start 05/14/17 at 21:00 Clonazepam (KlonoPIN) 0.5 mg DAILY PO Last administered on 05/14/17at 09:33; Start 05/14/17 at 09:00; Stop 05/14/17 at 19:12; Status DC Clonazepam (KlonoPIN) 1 mg QHS PO Last administered on 05/21/17at 19:41; Start at 01:00 Quetiapine Fumarate (SEROquel) 25 mg PRN Q6HRS PRN PO ANXIETY / AGITATION; Start 05/14/17 at 00:30; Stop 05/14/17 at 19:12; Status DC Quetiapine Fumarate (SEROquel) 50 mg DAILY PO Last administered on 05/14/17at 09 :33; Start 05/14/17 at 09:00; Stop 05/14/17 at 19:12; Status DC Quetiapine Fumarate (SEROquel) 75 mg QHS PO ; Start 05/14/17 at 21:00; Stop at 21:00; Status DC Sertraline HCl (Zoloft) 75 mg DAILY PO Last administered on 05/21/17at 08:26; Start 05/14/17 at 09:00; Stop 05/21/17 at 18:36; Status DC Lamotrigine (LaMICtal) 200 mg DAILY PO Last administered on 05/19/17at 09:12; Start 05/14/17 at 09:00; Stop 05/19/17 at 20:05; Status DC Vitamin D (Vitamin D3) 50,000 unit WEEKLY PO Last administered on 05/21/17at 08: 27; Start 05/14/17 at 18:00 Quetiapine Fumarate (SEROquel) 25 mg PRN Q4HRS PRN PO ANXIETY / AGITATION; Start 05/14/17 at 19:15 Ferrous Sulfate (Feosol) 325 mg DAILYWBKFT PO Last administered on 05/22/17at 09: 32; Start 05/20/17 at 08:00 Lamotrigine (LaMICtal) 150 mg DAILY PO Last administered on 05/22/17at 09:32; Start 05/20/17 at 09:00 Lamotrigine (LaMICtal) 100 mg DAILY PO Last administered on 05/22/17at 09:32; Start 05/20/17 at 09:00 Quetiapine Fumarate (SEROquel) 50 mg QHS PO Last administered on 05/21/17at 19:40 ; Start 05/19/17 at 21:00 Fluvoxamine Maleate (Luvox) 25 mg DAILY PO Last administered on 05/22/17 09:33 ; Start 05/22/17 at 09:00; Stop 05/24/17 at 08:59 Fluvoxamine Maleate (Luvox) 50 mg DAILY PO ; Start 05/24/17 at 09:00 Active Scripts Active Reported Pravachol (Pravastatin Sodium) 80 Mg Tablet 80 Mg PO DAILY Seroquel (Quetiapine Fumarate) 25 Mg Tablet 25 Mg PO PRN Q6HRS PRN Seroquel (Quetiapine Fumarate) 50 Mg Tablet 75 Mg PO QHS Seroquel (Quetiapine Fumarate) 50 Mg Tablet 50 Mg PO DAILY Zoloft (Sertraline Hcl) 50 Mg Tablet 75 Mg PO DAILY Losartan Potassium 25 Mg Tablet 25 Mg PO DAILY Lamotrigine 200 Mg Tablet 200 Mg PO DAILY Clonazepam 1 Mg Tablet 1 Mg PO QHS Clonazepam 0.5 Mg Tablet 0.5 Mg PO DAILY I have reviewed the current psychotropics carefully including drug interactions. Risk benefit ratio favors no change other than as noted in my dictated progress note. Diagnosis: Problems: (1) Bipolar disorder, mixed (2) Bipolar affective, mixed, severe (3) Anxiety disorder LIZA JUSTIN MD May 22, 2017 19:16
[2017-05-22] MEDS: ATORVASTATIN CALCIUM 20 MG TABLET PO SCH (19:25)
[2017-05-22] MEDS: clonazePAM 1 MG TABLET PO SCH (19:25)
[2017-05-22] MEDS: QUEtiapine 50 MG TABLET. PO SCH (19:25)
--- NOTE | 2017-05-22 22:22 | PN ---
DATE: 05/21/2017 This is a late entry for 05/21/2017 and covers elements not covered in my initial note of 05/21/2017. I met with the patient the evening of 05/21/2017 at length in his room. The patient has voiced to fleeting suicidal ideation as I met with him. Denied this to the nursing staff earlier in the day. Very obsessive, anxious, repetitive about problems with the sister and surrounding events about inheritance. REVIEW OF SYSTEMS: No CV, , pulmonary, eye, ENT system symptoms on review. MENTAL STATUS EXAM: Oriented, reasonably well. Speech is coherent, anxious, obsessive, repetitive. Abstraction fair, computation reasonable, language function intact. Mood and affect still somewhat dysphoric, obsessive. LABORATORY DATA: Reviewed. IMPRESSION: Bipolar 1 disorder, mixed with psychotic features, obsessive-compulsive disorder, anxiety disorder, unspecified. PLAN: Change Zoloft to Luvox 25 mg a day and increase to 50 mg a day in 2 days. Maintain Seroquel, lamotrigine, which was increased and Klonopin at current dosage. MAN Uma JUSTIN MD DR: KARI/lore JOB#: [id number] / [id number]
[2017-05-23 05:58] VITALS: BP 104/66
[2017-05-23] MEDS: FERROUS SULFATE 325 MG TABLET. PO SCH (08:05)
[2017-05-23] MEDS: lamoTRIgine 100 MG TABLET. PO SCH (08:05)
[2017-05-23] MEDS: LOSARTAN 25 MG TABLET. PO SCH (08:05)
[2017-05-23] MEDS: lamoTRIgine 150 MG TABLET. PO SCH (08:05)
[2017-05-23 15:24] VITALS: BP 112/68
[2017-05-23] MEDS: QUEtiapine 50 MG TABLET. PO SCH (19:40)
[2017-05-23] MEDS: ATORVASTATIN CALCIUM 20 MG TABLET PO SCH (19:40)
[2017-05-23] MEDS: clonazePAM 1 MG TABLET PO SCH (19:40)
--- NOTE | 2017-05-23 20:18 | PDOC ---
Exam Note: Luis Eduardo Note: Please also refer to the separate dictated note~for this date of service dictated separately.~Patient seen individually. Discussed the patient with Nursing staff reviewed the chart.~Reviewed interim history and current functioning. Reviewed vital signs,~Labs/ Radiology~and current medications noted below. Continue current treatment with the changes noted in the dictated addendum note Assessment: Vital Signs: Vital Signs Date Time Temp Pulse Resp B/P (MAP) Pulse Ox O2 Delivery O2 Flow Rate FiO2 05/23/17 15:24 97.7 63 16 112/68 (83) 100 05/19/17 06:15 Room Air I&O Intake and Output 05/23/17 07:00 Intake Total 1320 ml Balance 1320 ml Intake Oral 1320 ml Current Medications: Meds: Current Medications Acetaminophen (Tylenol) 650 mg PRN Q6HRS PRN PO PAIN / TEMP; Start 05/13/17 at 21:45 Multi-Ingredient Ointment (Analgesic [place]) 1 chris PRN QID PRN TP MUSCLE PAIN; Start 05/13/17 at 21:45 Al Hydroxide/Mg Hydroxide (Mylanta Plus Xs) 15 ml PRN AFTMEALHC PRN PO DYSPEPSIA; Start 05/13/17 at 21:45 Magnesium Hydroxide (Milk Of Magnesia) 2,400 mg PRN QHS PRN PO CONSTIPATION; Start 05/13/17 at 21:45 Losartan Potassium (Cozaar) 25 mg DAILY PO Last administered on 05/23/17at 08:05 ; Start 05/14/17 at 09:00 Atorvastatin Calcium (Lipitor) 20 mg HS PO Last administered on 05/23/17at 19:40 ; Start 05/14/17 at 21:00 Clonazepam (KlonoPIN) 0.5 mg DAILY PO Last administered on 05/14/17at 09:33; Start 05/14/17 at 09:00; Stop 05/14/17 at 19:12; Status DC Clonazepam (KlonoPIN) 1 mg QHS PO Last administered on 05/23/17at 19:40; Start at 01:00 Quetiapine Fumarate (SEROquel) 25 mg PRN Q6HRS PRN PO ANXIETY / AGITATION; Start 05/14/17 at 00:30; Stop 05/14/17 at 19:12; Status DC Quetiapine Fumarate (SEROquel) 50 mg DAILY PO Last administered on 05/14/17at 09 :33; Start 05/14/17 at 09:00; Stop 05/14/17 at 19:12; Status DC Quetiapine Fumarate (SEROquel) 75 mg QHS PO ; Start 05/14/17 at 21:00; Stop at 21:00; Status DC Sertraline HCl (Zoloft) 75 mg DAILY PO Last administered on 05/21/17at 08:26; Start 05/14/17 at 09:00; Stop 05/21/17 at 18:36; Status DC Lamotrigine (LaMICtal) 200 mg DAILY PO Last administered on 05/19/17at 09:12; Start 05/14/17 at 09:00; Stop 05/19/17 at 20:05; Status DC Vitamin D (Vitamin D3) 50,000 unit WEEKLY PO Last administered on 05/21/17at 08: 27; Start 05/14/17 at 18:00 Quetiapine Fumarate (SEROquel) 25 mg PRN Q4HRS PRN PO ANXIETY / AGITATION; Start 05/14/17 at 19:15 Ferrous Sulfate (Feosol) 325 mg DAILYWBKFT PO Last administered on 05/23/17at 08: 05; Start 05/20/17 at 08:00 Lamotrigine (LaMICtal) 150 mg DAILY PO Last administered on 05/23/17at 08:05; Start 05/20/17 at 09:00 Lamotrigine (LaMICtal) 100 mg DAILY PO Last administered on 05/23/17at 08:05; Start 05/20/17 at 09:00 Quetiapine Fumarate (SEROquel) 50 mg QHS PO Last administered on 05/23/17at 19:40 ; Start 05/19/17 at 21:00 Fluvoxamine Maleate (Luvox) 25 mg DAILY PO Last administered on 05/23/17at 08:05 ; Start 05/22/17 at 09:00; Stop 05/24/17 at 08:59 Fluvoxamine Maleate (Luvox) 50 mg DAILY PO ; Start 05/24/17 at 09:00 Active Scripts Active Reported Pravachol (Pravastatin Sodium) 80 Mg Tablet 80 Mg PO DAILY Seroquel (Quetiapine Fumarate) 25 Mg Tablet 25 Mg PO PRN Q6HRS PRN Seroquel (Quetiapine Fumarate) 50 Mg Tablet 75 Mg PO QHS Seroquel (Quetiapine Fumarate) 50 Mg Tablet 50 Mg PO DAILY Zoloft (Sertraline Hcl) 50 Mg Tablet 75 Mg PO DAILY Losartan Potassium 25 Mg Tablet 25 Mg PO DAILY Lamotrigine 200 Mg Tablet 200 Mg PO DAILY Clonazepam 1 Mg Tablet 1 Mg PO QHS Clonazepam 0.5 Mg Tablet 0.5 Mg PO DAILY I have reviewed the current psychotropics carefully including drug interactions. Risk benefit ratio favors no change other than as noted in my dictated progress note. Diagnosis: Problems: (1) Bipolar disorder, mixed (2) Bipolar affective, mixed, severe (3) Anxiety disorder LIZA JUSTIN MD May 23, 2017 20:18
[2017-05-24 05:54] VITALS: BP 117/74
[2017-05-24] MEDS: lamoTRIgine 150 MG TABLET. PO SCH (08:08)
[2017-05-24] MEDS: lamoTRIgine 100 MG TABLET. PO SCH (08:08)
[2017-05-24] MEDS: FERROUS SULFATE 325 MG TABLET. PO SCH (08:08)
[2017-05-24] MEDS: LOSARTAN 25 MG TABLET. PO SCH (08:09)
[2017-05-24 15:55] VITALS: BP 118/73
--- NOTE | 2017-05-24 19:37 | PDOC ---
Exam Note: Luis Eduardo Note: Please also refer to the separate dictated note~for this date of service dictated separately.~Patient seen individually. Discussed the patient with Nursing staff reviewed the chart.~Reviewed interim history and current functioning. Reviewed vital signs,~Labs/ Radiology~and current medications noted below. Continue current treatment with the changes noted in the dictated addendum note Assessment: Vital Signs: Vital Signs Date Time Temp Pulse Resp B/P (MAP) Pulse Ox O2 Delivery O2 Flow Rate FiO2 05/24/17 15:55 98.9 69 19 118/73 (88) 99 05/19/17 06:15 Room Air I&O Intake and Output 05/24/17 07:00 Intake Total 960 ml Balance 960 ml Intake Oral 960 ml Current Medications: Meds: Current Medications Acetaminophen (Tylenol) 650 mg PRN Q6HRS PRN PO PAIN / TEMP; Start 05/13/17 at 21:45 Multi-Ingredient Ointment (Analgesic [place]) 1 chris PRN QID PRN TP MUSCLE PAIN; Start 05/13/17 at 21:45 Al Hydroxide/Mg Hydroxide (Mylanta Plus Xs) 15 ml PRN AFTMEALHC PRN PO DYSPEPSIA; Start 05/13/17 at 21:45 Magnesium Hydroxide (Milk Of Magnesia) 2,400 mg PRN QHS PRN PO CONSTIPATION; Start 05/13/17 at 21:45 Losartan Potassium (Cozaar) 25 mg DAILY PO Last administered on 05/24/17at 08:09 ; Start 05/14/17 at 09:00 Atorvastatin Calcium (Lipitor) 20 mg HS PO Last administered on 05/23/17at 19:40 ; Start 05/14/17 at 21:00 Clonazepam (KlonoPIN) 0.5 mg DAILY PO Last administered on 05/14/17at 09:33; Start 05/14/17 at 09:00; Stop 05/14/17 at 19:12; Status DC Clonazepam (KlonoPIN) 1 mg QHS PO Last administered on 05/23/17at 19:40; Start at 01:00 Quetiapine Fumarate (SEROquel) 25 mg PRN Q6HRS PRN PO ANXIETY / AGITATION; Start 05/14/17 at 00:30; Stop 05/14/17 at 19:12; Status DC Quetiapine Fumarate (SEROquel) 50 mg DAILY PO Last administered on 05/14/17at 09 :33; Start 05/14/17 at 09:00; Stop 05/14/17 at 19:12; Status DC Quetiapine Fumarate (SEROquel) 75 mg QHS PO ; Start 05/14/17 at 21:00; Stop at 21:00; Status DC Sertraline HCl (Zoloft) 75 mg DAILY PO Last administered on 05/21/17at 08:26; Start 05/14/17 at 09:00; Stop 05/21/17 at 18:36; Status DC Lamotrigine (LaMICtal) 200 mg DAILY PO Last administered on 05/19/17at 09:12; Start 05/14/17 at 09:00; Stop 05/19/17 at 20:05; Status DC Vitamin D (Vitamin D3) 50,000 unit WEEKLY PO Last administered on 05/21/17at 08: 27; Start 05/14/17 at 18:00 Quetiapine Fumarate (SEROquel) 25 mg PRN Q4HRS PRN PO ANXIETY / AGITATION; Start 05/14/17 at 19:15 Ferrous Sulfate (Feosol) 325 mg DAILYWBKFT PO Last administered on 05/24/17at 08: 08; Start 05/20/17 at 08:00 Lamotrigine (LaMICtal) 150 mg DAILY PO Last administered on 05/24/17at 08:08; Start 05/20/17 at 09:00 Lamotrigine (LaMICtal) 100 mg DAILY PO Last administered on 05/24/17at 08:08; Start 05/20/17 at 09:00 Quetiapine Fumarate (SEROquel) 50 mg QHS PO Last administered on 05/23/17at 19:40 ; Start 05/19/17 at 21:00 Fluvoxamine Maleate (Luvox) 25 mg DAILY PO Last administered on 05/23/17at 08:05 ; Start 05/22/17 at 09:00; Stop 05/24/17 at 09:00; Status DC Fluvoxamine Maleate (Luvox) 50 mg DAILY PO Last administered on 05/24/17at 08:09 ; Start 05/24/17 at 09:00; Stop 05/25/17 at 21:00 Fluvoxamine Maleate (Luvox) 75 mg DAILY PO ; Start 05/26/17 at 09:00 Active Scripts Active Reported Pravachol (Pravastatin Sodium) 80 Mg Tablet 80 Mg PO DAILY Seroquel (Quetiapine Fumarate) 25 Mg Tablet 25 Mg PO PRN Q6HRS PRN Seroquel (Quetiapine Fumarate) 50 Mg Tablet 75 Mg PO QHS Seroquel (Quetiapine Fumarate) 50 Mg Tablet 50 Mg PO DAILY Zoloft (Sertraline Hcl) 50 Mg Tablet 75 Mg PO DAILY Losartan Potassium 25 Mg Tablet 25 Mg PO DAILY Lamotrigine 200 Mg Tablet 200 Mg PO DAILY Clonazepam 1 Mg Tablet 1 Mg PO QHS Clonazepam 0.5 Mg Tablet 0.5 Mg PO DAILY I have reviewed the current psychotropics carefully including drug interactions. Risk benefit ratio favors no change other than as noted in my dictated progress note. Diagnosis: Problems: (1) Bipolar disorder, mixed (2) Bipolar affective, mixed, severe (3) Anxiety disorder LIZA JUSTIN MD May 24, 2017 19:37
[2017-05-24] MEDS: clonazePAM 1 MG TABLET PO SCH (19:46)
[2017-05-24] MEDS: QUEtiapine 50 MG TABLET. PO SCH (19:46)
[2017-05-24] MEDS: ATORVASTATIN CALCIUM 20 MG TABLET PO SCH (19:46)
--- NOTE | 2017-05-25 00:35 | PN ---
DATE: 05/22/2017 This is a late entry for 05/22/2017 covers elements not covered in my initial note of 05/22/2017. SUBJECTIVE: I met with the patient in the evening of 05/22/2017. The patient remains somewhat withdrawn, quite obsessive, anxious, met with him at length in his room. REVIEW OF SYSTEMS: No CV, , pulmonary, eye system symptoms on review. MENTAL STATUS EXAM: Oriented to himself and situation. Speech coherent, abstraction fair, computation impaired, language function intact, attention span short. Mood and affect still somewhat dysphoric, obsessive. No active suicidal or homicidal ideation. LABORATORY DATA: Reviewed. IMPRESSION: Bipolar 1 disorder, depressed, obsessive compulsive disorder. Rest unchanged. PLAN: Adjust the Luvox gradually, continue rest unchanged. MAN Uma JUSTIN MD DR: KAIR/lore JOB#: [id number] / [id number]
--- NOTE | 2017-05-25 04:17 | PN ---
DATE: 05/23/2017 This is a late entry 05/23/2017 covers elements not covered in my initial note of 05/23/2017. I met with the patient in the evening of 05/23/2017 staffed at a treatment team meeting with the entire team morning of 05/23/2017. Overall, per nursing report, the patient is doing a little better, still somewhat obsessive, admits to being depressed as I met with him at length in his room. REVIEW OF SYSTEMS: No CV, , pulmonary, eye system symptoms on review. MENTAL STATUS EXAM: Reasonably oriented. Speech is coherent, abstraction fair, computation reasonable, language function intact, attention span short. Mood and affect still somewhat anxious, obsessive with some mood lability, but showing improvement. LABORATORY DATA: Reviewed. IMPRESSION: Bipolar 1 disorder, mixed versus depressed, obsessive compulsive disorder. Rest unchanged. PLAN: Continue psychotropics mentioned in my initial note. MAN Uma JUSTIN MD DR: KARI/lore JOB#: [id number] / [id number]
[2017-05-25 05:52] VITALS: BP 98/65
[2017-05-25 07:32] LABS: BASO % 1 % (0-3); EOS # 0.1 x10^3/uL (0.0-0.7); EOS % 3 % (0-3); HEMATOCRIT 34.6 % (39.0-53.0); HEMOGLOBIN 11.8 g/dL (13.0-17.5); LYMPH # 1.3 x10^3/uL (1.0-4.8); LYMPH % 26 % (24-48); MEAN CORPUSCULAR HEMOGLOBIN 32 pg (25-35); MEAN CORPUSCULAR HGB CONC 34 g/dL (31-37); MEAN CORPUSCULAR VOLUME 93 fL (79-100); MONO # 0.6 x10^3/uL (0.0-1.1); MONO % 12 % (0-9); NEUT % 59 % (31-73); PLATELET COUNT 233 x10^3/uL (140-400); RED BLOOD COUNT 3.71 x10^6/uL (4.30-5.70); RED CELL DISTRIBUTION WIDTH 12.4 % (11.5-14.5); WHITE BLOOD COUNT 5.1 x10^3/uL (4.0-11.0)
[2017-05-25 08:00] LABS: ALBUMIN 2.9 g/dL (3.4-5.0); ALBUMIN/GLOBULIN RATIO 0.9 (1.0-1.7); CALCIUM 8.7 mg/dL (8.5-10.1); CREATININE 1.8 mg/dL (0.7-1.3); GFR 37.2; MAGNESIUM 1.8 mg/dL (1.8-2.4); TOTAL BILIRUBIN 0.2 mg/dL (0.2-1.0)
[2017-05-25] MEDS: FERROUS SULFATE 325 MG TABLET. PO SCH (08:55)
[2017-05-25] MEDS: lamoTRIgine 150 MG TABLET. PO SCH (08:56)
[2017-05-25] MEDS: lamoTRIgine 100 MG TABLET. PO SCH (08:58)
[2017-05-25] MEDS: LOSARTAN 25 MG TABLET. PO SCH (09:00)
[2017-05-25 16:19] VITALS: BP 125/79
[2017-05-25] MEDS: QUEtiapine 50 MG TABLET. PO SCH (19:19)
[2017-05-25] MEDS: ATORVASTATIN CALCIUM 20 MG TABLET PO SCH (19:19)
[2017-05-25] MEDS: clonazePAM 1 MG TABLET PO SCH (19:19)
--- NOTE | 2017-05-25 21:34 | PDOC ---
Exam Note: Luis Eduardo Note: Please also refer to the separate dictated note~for this date of service dictated separately.~Patient seen individually. Discussed the patient with Nursing staff reviewed the chart.~Reviewed interim history and current functioning. Reviewed vital signs,~Labs/ Radiology~and current medications noted below. Continue current treatment with the changes noted in the dictated addendum note Assessment: Vital Signs: Vital Signs Date Time Temp Pulse Resp B/P (MAP) Pulse Ox O2 Delivery O2 Flow Rate FiO2 05/25/17 16:19 98.7 65 20 125/79 (94) 99 Room Air I&O Intake and Output 05/25/17 07:00 Intake Total 1980 ml Balance 1980 ml Intake Oral 1980 ml Labs: Laboratory Tests Test 05/25/17 06:59 White Blood Count 5.1 x10^3/uL (4.0-11.0) Red Blood Count 3.71 x10^6/uL (4.30-5.70) L Hemoglobin 11.8 g/dL (13.0-17.5) L Hematocrit 34.6 % (39.0-53.0) L Mean Corpuscular Volume 93 fL (79-100) Mean Corpuscular Hemoglobin 32 pg (25-35) Mean Corpuscular Hemoglobin Concent 34 g/dL (31-37) Red Cell Distribution Width 12.4 % (11.5-14.5) Platelet Count 233 x10^3/uL (140-400) Neutrophils (%) (Auto) 59 % (31-73) Lymphocytes (%) (Auto) 26 % (24-48) Monocytes (%) (Auto) 12 % (0-9) H Eosinophils (%) (Auto) 3 % (0-3) Basophils (%) (Auto) 1 % (0-3) Neutrophils # (Auto) 3.0 x10^3uL (1.8-7.7) Lymphocytes # (Auto) 1.3 x10^3/uL (1.0-4.8) Monocytes # (Auto) 0.6 x10^3/uL (0.0-1.1) Eosinophils # (Auto) 0.1 x10^3/uL (0.0-0.7) Basophils # (Auto) 0.0 x10^3/uL (0.0-0.2) Sodium Level 144 mmol/L (136-145) Potassium Level 4.0 mmol/L (3.5-5.1) Chloride Level 110 mmol/L (98-107) H Carbon Dioxide Level 28 mmol/L (21-32) Anion Gap 6 (6-14) Blood Urea Nitrogen 19 mg/dL (8-26) Creatinine 1.8 mg/dL (0.7-1.3) H Estimated GFR (Cockcroft-Gault) 37.2 BUN/Creatinine Ratio 11 (6-20) Glucose Level 87 mg/dL (70-99) Calcium Level 8.7 mg/dL (8.5-10.1) Magnesium Level 1.8 mg/dL (1.8-2.4) Total Bilirubin 0.2 mg/dL (0.2-1.0) Aspartate Amino Transferase (AST) 12 U/L (15-37) L Alanine Aminotransferase (ALT) 19 U/L (16-63) Alkaline Phosphatase 60 U/L (46-116) Total Protein 6.0 g/dL (6.4-8.2) L Albumin 2.9 g/dL (3.4-5.0) L Albumin/Globulin Ratio 0.9 (1.0-1.7) L Current Medications: Meds: Current Medications Acetaminophen (Tylenol) 650 mg PRN Q6HRS PRN PO PAIN / TEMP; Start 05/13/17 at 21:45 Multi-Ingredient Ointment (Analgesic [place]) 1 chris PRN QID PRN TP MUSCLE PAIN; Start 05/13/17 at 21:45 Al Hydroxide/Mg Hydroxide (Mylanta Plus Xs) 15 ml PRN AFTMEALHC PRN PO DYSPEPSIA; Start 05/13/17 at 21:45 Magnesium Hydroxide (Milk Of Magnesia) 2,400 mg PRN QHS PRN PO CONSTIPATION; Start 05/13/17 at 21:45 Losartan Potassium (Cozaar) 25 mg DAILY PO Last administered on 05/24/17at 08:09 ; Start 05/14/17 at 09:00 Atorvastatin Calcium (Lipitor) 20 mg HS PO Last administered on 05/25/17at 19:19 ; Start 05/14/17 at 21:00 Clonazepam (KlonoPIN) 0.5 mg DAILY PO Last administered on 05/14/17at 09:33; Start 05/14/17 at 09:00; Stop 05/14/17 at 19:12; Status DC Clonazepam (KlonoPIN) 1 mg QHS PO Last administered on 05/25/17at 19:19; Start 05/14/17 at 01:00 Quetiapine Fumarate (SEROquel) 25 mg PRN Q6HRS PRN PO ANXIETY / AGITATION; Start 05/14/17 at 00:30; Stop 05/14/17 at 19:12; Status DC Quetiapine Fumarate (SEROquel) 50 mg DAILY PO Last administered on 05/14/17at 09 :33; Start 05/14/17 at 09:00; Stop 05/14/17 at 19:12; Status DC Quetiapine Fumarate (SEROquel) 75 mg QHS PO ; Start 05/14/17 at 21:00; Stop at 21:00; Status DC Sertraline HCl (Zoloft) 75 mg DAILY PO Last administered on 05/21/17at 08:26; Start 05/14/17 at 09:00; Stop 05/21/17 at 18:36; Status DC Lamotrigine (LaMICtal) 200 mg DAILY PO Last administered on 05/19/17at 09:12; Start 05/14/17 at 09:00; Stop 05/19/17 at 20:05; Status DC Vitamin D (Vitamin D3) 50,000 unit WEEKLY PO Last administered on 05/21/17at 08: 27; Start 05/14/17 at 18:00 Quetiapine Fumarate (SEROquel) 25 mg PRN Q4HRS PRN PO ANXIETY / AGITATION; Start 05/14/17 at 19:15 Ferrous Sulfate (Feosol) 325 mg DAILYWBKFT PO Last administered on 05/25/17at 08 :55; Start 05/20/17 at 08:00 Lamotrigine (LaMICtal) 150 mg DAILY PO Last administered on 05/25/17at 08:56; Start 05/20/17 at 09:00 Lamotrigine (LaMICtal) 100 mg DAILY PO Last administered on 05/25/17at 08:58; Start 05/20/17 at 09:00 Quetiapine Fumarate (SEROquel) 50 mg QHS PO Last administered on 05/25/17at 19: 19; Start 05/19/17 at 21:00 Fluvoxamine Maleate (Luvox) 25 mg DAILY PO Last administered on 05/23/17at 08:05 ; Start 05/22/17 at 09:00; Stop 05/24/17 at 09:00; Status DC Fluvoxamine Maleate (Luvox) 50 mg DAILY PO Last administered on 05/25/17at 08:59 ; Start 05/24/17 at 09:00; Stop 05/25/17 at 21:00; Status DC Fluvoxamine Maleate (Luvox) 75 mg DAILY PO ; Start 05/26/17 at 09:00 Active Scripts Active Reported Pravachol (Pravastatin Sodium) 80 Mg Tablet 80 Mg PO DAILY Seroquel (Quetiapine Fumarate) 25 Mg Tablet 25 Mg PO PRN Q6HRS PRN Seroquel (Quetiapine Fumarate) 50 Mg Tablet 75 Mg PO QHS Seroquel (Quetiapine Fumarate) 50 Mg Tablet 50 Mg PO DAILY Zoloft (Sertraline Hcl) 50 Mg Tablet 75 Mg PO DAILY Losartan Potassium 25 Mg Tablet 25 Mg PO DAILY Lamotrigine 200 Mg Tablet 200 Mg PO DAILY Clonazepam 1 Mg Tablet 1 Mg PO QHS Clonazepam 0.5 Mg Tablet 0.5 Mg PO DAILY I have reviewed the current psychotropics carefully including drug interactions. Risk benefit ratio favors no change other than as noted in my dictated progress note. Diagnosis: Problems: (1) Bipolar disorder, mixed (2) Bipolar affective, mixed, severe (3) Anxiety disorder LIZA JUSTIN MD May 25, 2017 21:34
[2017-05-26 05:47] VITALS: BP 136/82
[2017-05-26] MEDS: LOSARTAN 25 MG TABLET. PO SCH (07:56)
[2017-05-26] MEDS: lamoTRIgine 100 MG TABLET. PO SCH (07:57)
[2017-05-26] MEDS: FERROUS SULFATE 325 MG TABLET. PO SCH (07:57)
[2017-05-26] MEDS: lamoTRIgine 150 MG TABLET. PO SCH (07:58)
[2017-05-26 16:05] VITALS: BP 115/77
[2017-05-26] MEDS: clonazePAM 1 MG TABLET PO SCH (19:36)
[2017-05-26] MEDS: QUEtiapine 50 MG TABLET. PO SCH (19:36)
[2017-05-26] MEDS: ATORVASTATIN CALCIUM 20 MG TABLET PO SCH (19:36)
--- NOTE | 2017-05-26 20:39 | PDOC ---
Exam Note: Luis Eduardo Note: Please also refer to the separate dictated note~for this date of service dictated separately.~Patient seen individually. Discussed the patient with Nursing staff reviewed the chart.~Reviewed interim history and current functioning. Reviewed vital signs,~Labs/ Radiology~and current medications noted below. Continue current treatment with the changes noted in the dictated addendum note Assessment: Vital Signs: Vital Signs Date Time Temp Pulse Resp B/P (MAP) Pulse Ox O2 Delivery O2 Flow Rate FiO2 05/26/17 16:05 99.1 62 18 115/77 (90) 99 05/25/17 16:19 Room Air I&O Intake and Output 05/26/17 07:00 Intake Total 1540 ml Balance 1540 ml Intake Oral 1540 ml # Bowel Movements 1 Current Medications: Meds: Current Medications Acetaminophen (Tylenol) 650 mg PRN Q6HRS PRN PO PAIN / TEMP; Start 05/13/17 at 21:45 Multi-Ingredient Ointment (Analgesic [place]) 1 chris PRN QID PRN TP MUSCLE PAIN; Start 05/13/17 at 21:45 Al Hydroxide/Mg Hydroxide (Mylanta Plus Xs) 15 ml PRN AFTMEALHC PRN PO DYSPEPSIA; Start 05/13/17 at 21:45 Magnesium Hydroxide (Milk Of Magnesia) 2,400 mg PRN QHS PRN PO CONSTIPATION; Start 05/13/17 at 21:45 Losartan Potassium (Cozaar) 25 mg DAILY PO Last administered on 05/26/17at 07:56 ; Start 05/14/17 at 09:00 Atorvastatin Calcium (Lipitor) 20 mg HS PO Last administered on 05/26/17at 19:36 ; Start 05/14/17 at 21:00 Clonazepam (KlonoPIN) 0.5 mg DAILY PO Last administered on 05/14/17at 09:33; Start 05/14/17 at 09:00; Stop 05/14/17 at 19:12; Status DC Clonazepam (KlonoPIN) 1 mg QHS PO Last administered on 05/26/17at 19:36; Start 05/14/17 at 01:00 Quetiapine Fumarate (SEROquel) 25 mg PRN Q6HRS PRN PO ANXIETY / AGITATION; Start 05/14/17 at 00:30; Stop 05/14/17 at 19:12; Status DC Quetiapine Fumarate (SEROquel) 50 mg DAILY PO Last administered on 05/14/17at 09 :33; Start 05/14/17 at 09:00; Stop 05/14/17 at 19:12; Status DC Quetiapine Fumarate (SEROquel) 75 mg QHS PO ; Start 05/14/17 at 21:00; Stop at 21:00; Status DC Sertraline HCl (Zoloft) 75 mg DAILY PO Last administered on 05/21/17at 08:26; Start 05/14/17 at 09:00; Stop 05/21/17 at 18:36; Status DC Lamotrigine (LaMICtal) 200 mg DAILY PO Last administered on 05/19/17at 09:12; Start 05/14/17 at 09:00; Stop 05/19/17 at 20:05; Status DC Vitamin D (Vitamin D3) 50,000 unit WEEKLY PO Last administered on 05/21/17at 08: 27; Start 05/14/17 at 18:00 Quetiapine Fumarate (SEROquel) 25 mg PRN Q4HRS PRN PO ANXIETY / AGITATION; Start 05/14/17 at 19:15 Ferrous Sulfate (Feosol) 325 mg DAILYWBKFT PO Last administered on 05/26/17at 07 :57; Start 05/20/17 at 08:00 Lamotrigine (LaMICtal) 150 mg DAILY PO Last administered on 05/26/17at 07:58; Start 05/20/17 at 09:00 Lamotrigine (LaMICtal) 100 mg DAILY PO Last administered on 05/26/17at 07:57; Start 05/20/17 at 09:00 Quetiapine Fumarate (SEROquel) 50 mg QHS PO Last administered on 05/26/17at 19: 36; Start 05/19/17 at 21:00 Fluvoxamine Maleate (Luvox) 25 mg DAILY PO Last administered on 05/23/17at 08:05 ; Start 05/22/17 at 09:00; Stop 05/24/17 at 09:00; Status DC Fluvoxamine Maleate (Luvox) 50 mg DAILY PO Last administered on 05/25/17at 08:59 ; Start 2/9/18 at 09:00; Stop 05/25/17 at 21:00; Status DC Fluvoxamine Maleate (Luvox) 75 mg DAILY PO Last administered on 05/26/17at 07:57 ; Start 05/26/17 at 09:00 Active Scripts Active Reported Pravachol (Pravastatin Sodium) 80 Mg Tablet 80 Mg PO DAILY Seroquel (Quetiapine Fumarate) 25 Mg Tablet 25 Mg PO PRN Q6HRS PRN Seroquel (Quetiapine Fumarate) 50 Mg Tablet 75 Mg PO QHS Seroquel (Quetiapine Fumarate) 50 Mg Tablet 50 Mg PO DAILY Zoloft (Sertraline Hcl) 50 Mg Tablet 75 Mg PO DAILY Losartan Potassium 25 Mg Tablet 25 Mg PO DAILY Lamotrigine 200 Mg Tablet 200 Mg PO DAILY Clonazepam 1 Mg Tablet 1 Mg PO QHS Clonazepam 0.5 Mg Tablet 0.5 Mg PO DAILY I have reviewed the current psychotropics carefully including drug interactions. Risk benefit ratio favors no change other than as noted in my dictated progress note. Diagnosis: Problems: (1) Bipolar disorder, mixed (2) Bipolar affective, mixed, severe (3) Anxiety disorder LIZA JUSTIN MD May 26, 2017 20:39
--- NOTE | 2017-05-27 01:24 | PN ---
DATE: 05/25/2017 This late entry of 05/25/2017 covers elements not covered in my initial note of 05/25/2017. SUBJECTIVE: I met with the patient in the evening of 05/25/2017. Overall, the patient states he is doing better, still somewhat obsessive, anxious. Denies suicidal ideation. REVIEW OF SYSTEMS: No CV, , pulmonary, eye system symptoms on review. MENTAL STATUS EXAM: Reasonably oriented. Speech is coherent, abstraction fair, computation reasonable, language function intact. Mood and affect is improved. IMPRESSION: Bipolar 1 disorder, mixed, OCD, anxiety disorder, unspecified. PLAN: Continue to gradually increase Luvox to 75 mg a day on 05/26/2017. Maintain Klonopin, Seroquel, Lamictal at current dosage. MAN Uma JUSTIN MD DR: KARI/lore JOB#: [id number] / [id number]
--- NOTE | 2017-05-27 01:26 | PN ---
DATE: 05/24/2017 PSYCHIATRIC PROGRESS NOTE This late entry 05/24/2017 covers elements not covered in my initial note 05/24/2017. SUBJECTIVE: Met with the patient in the evening of 05/24/2017. Overall, the patient is doing a little better, still anxious, obsessive, somewhat dysphoric, processed at length individually. REVIEW OF SYSTEMS: No CV, , pulmonary, eye system symptoms on review. MENTAL STATUS EXAM: Reasonably oriented. Speech is coherent, abstraction fair, computation impaired. He states in the afternoon he felt a little overwhelmed, had fleeting suicidal ideation, no plans, intent or settling or attempt. Processed this individually. No suicidal ideations since then. LABORATORY DATA: Reviewed. IMPRESSION: Bipolar 1 disorder, mixed of obsessive compulsive disorder, anxiety disorder, unspecified. PLAN: Increase Luvox to 75 mg a day after he has been on 50 mg a day for 2 days. Continue rest unchanged. MAN Uma JUSTIN MD DR: KARI/lore JOB#: [id number] / [id number]
[2017-05-27 06:00] VITALS: BP 116/72
[2017-05-27] MEDS: lamoTRIgine 100 MG TABLET. PO SCH (07:59)
[2017-05-27] MEDS: lamoTRIgine 150 MG TABLET. PO SCH (07:59)
[2017-05-27] MEDS: FERROUS SULFATE 325 MG TABLET. PO SCH (07:59)
[2017-05-27] MEDS: LOSARTAN 25 MG TABLET. PO SCH (08:00)
[2017-05-27 16:30] VITALS: BP 130/70
[2017-05-27] MEDS: ATORVASTATIN CALCIUM 20 MG TABLET PO SCH (20:01)
[2017-05-27] MEDS: QUEtiapine 50 MG TABLET. PO SCH (20:01)
[2017-05-27] MEDS: clonazePAM 1 MG TABLET PO SCH (20:03)
--- NOTE | 2017-05-27 22:35 | PDOC ---
Exam Note: Luis Eduardo Note: Please also refer to the separate dictated note~for this date of service dictated separately.~Patient seen individually. Discussed the patient with Nursing staff reviewed the chart.~Reviewed interim history and current functioning. Reviewed vital signs,~Labs/ Radiology~and current medications noted below. Continue current treatment with the changes noted in the dictated addendum note Assessment: Vital Signs: Vital Signs Date Time Temp Pulse Resp B/P (MAP) Pulse Ox O2 Delivery O2 Flow Rate FiO2 05/27/17 16:30 98.9 63 18 130/70 (90) 98 05/25/17 16:19 Room Air I&O Intake and Output 05/27/17 07:00 Intake Total 1660 ml Balance 1660 ml Intake Oral 1660 ml # Bowel Movements 1 Current Medications: Meds: Current Medications Acetaminophen (Tylenol) 650 mg PRN Q6HRS PRN PO PAIN / TEMP; Start 05/13/17 at 21:45 Multi-Ingredient Ointment (Analgesic [place]) 1 chris PRN QID PRN TP MUSCLE PAIN; Start 05/13/17 at 21:45 Al Hydroxide/Mg Hydroxide (Mylanta Plus Xs) 15 ml PRN AFTMEALHC PRN PO DYSPEPSIA; Start 05/13/17 at 21:45 Magnesium Hydroxide (Milk Of Magnesia) 2,400 mg PRN QHS PRN PO CONSTIPATION; Start 05/13/17 at 21:45 Losartan Potassium (Cozaar) 25 mg DAILY PO Last administered on 05/27/17at 08:00 ; Start 05/14/17 at 09:00 Atorvastatin Calcium (Lipitor) 20 mg HS PO Last administered on 05/27/17at 20:01 ; Start 05/14/17 at 21:00 Clonazepam (KlonoPIN) 0.5 mg DAILY PO Last administered on 05/14/17at 09:33; Start 05/14/17 at 09:00; Stop 05/14/17 at 19:12; Status DC Clonazepam (KlonoPIN) 1 mg QHS PO Last administered on 05/27/17at 20:03; Start 05/14/17 at 01:00 Quetiapine Fumarate (SEROquel) 25 mg PRN Q6HRS PRN PO ANXIETY / AGITATION; Start 05/14/17 at 00:30; Stop 05/14/17 at 19:12; Status DC Quetiapine Fumarate (SEROquel) 50 mg DAILY PO Last administered on 05/14/17at 09 :33; Start 05/14/17 at 09:00; Stop 05/14/17 at 19:12; Status DC Quetiapine Fumarate (SEROquel) 75 mg QHS PO ; Start 05/14/17 at 21:00; Stop at 21:00; Status DC Sertraline HCl (Zoloft) 75 mg DAILY PO Last administered on 05/21/17at 08:26; Start 05/14/17 at 09:00; Stop 05/21/17 at 18:36; Status DC Lamotrigine (LaMICtal) 200 mg DAILY PO Last administered on 05/19/17at 09:12; Start 05/14/17 at 09:00; Stop 05/19/17 at 20:05; Status DC Vitamin D (Vitamin D3) 50,000 unit WEEKLY PO Last administered on 05/21/17at 08: 27; Start 05/14/17 at 18:00 Quetiapine Fumarate (SEROquel) 25 mg PRN Q4HRS PRN PO ANXIETY / AGITATION; Start 05/14/17 at 19:15 Ferrous Sulfate (Feosol) 325 mg DAILYWBKFT PO Last administered on 05/27/17at 07 :59; Start 05/20/17 at 08:00 Lamotrigine (LaMICtal) 150 mg DAILY PO Last administered on 05/27/17at 07:59; Start 05/20/17 at 09:00 Lamotrigine (LaMICtal) 100 mg DAILY PO Last administered on 05/27/17at 07:59; Start 05/20/17 at 09:00 Quetiapine Fumarate (SEROquel) 50 mg QHS PO Last administered on 05/27/17at 20: 01; Start 05/19/17 at 21:00 Fluvoxamine Maleate (Luvox) 25 mg DAILY PO Last administered on 05/23/17at 08:05 ; Start 05/22/17 at 09:00; Stop 05/24/17 at 09:00; Status DC Fluvoxamine Maleate (Luvox) 50 mg DAILY PO Last administered on 05/25/17at 08:59 ; Start 2/9/18 at 09:00; Stop 05/25/17 at 21:00; Status DC Fluvoxamine Maleate (Luvox) 75 mg DAILY PO Last administered on 05/27/17at 07:59 ; Start 05/26/17 at 09:00; Stop 05/27/17 at 19:24; Status DC Fluvoxamine Maleate (Luvox) 100 mg QHS PO ; Start 05/28/17 at 21:00 Active Scripts Active Reported Pravachol (Pravastatin Sodium) 80 Mg Tablet 80 Mg PO DAILY Seroquel (Quetiapine Fumarate) 25 Mg Tablet 25 Mg PO PRN Q6HRS PRN Seroquel (Quetiapine Fumarate) 50 Mg Tablet 75 Mg PO QHS Seroquel (Quetiapine Fumarate) 50 Mg Tablet 50 Mg PO DAILY Zoloft (Sertraline Hcl) 50 Mg Tablet 75 Mg PO DAILY Losartan Potassium 25 Mg Tablet 25 Mg PO DAILY Lamotrigine 200 Mg Tablet 200 Mg PO DAILY Clonazepam 1 Mg Tablet 1 Mg PO QHS Clonazepam 0.5 Mg Tablet 0.5 Mg PO DAILY I have reviewed the current psychotropics carefully including drug interactions. Risk benefit ratio favors no change other than as noted in my dictated progress note. Diagnosis: Problems: (1) Bipolar disorder, mixed (2) Bipolar affective, mixed, severe (3) Anxiety disorder LIZA JUSTIN MD May 27, 2017 22:35
--- NOTE | 2017-05-28 06:05 | PN ---
DATE: 05/26/2017 This is a late entry for 05/26/2017 and covers the elements not covered in my initial note of 05/26/2017. SUBJECTIVE: I met with the patient in the evening of 05/26/2017 at length in his room. He is well oriented. He states he has had a better day, less anxious, still gets a little obsessive. REVIEW OF SYSTEMS: No CV, , pulmonary, eye, ENT system symptoms on review. MENTAL STATUS EXAM: Reasonably oriented. Speech coherent, abstraction fair, computation reasonable, language function intact, attention span short. Mood and affect showing improvement, less obsessive, less anxious. No suicidal ideation. LABORATORY DATA: Reviewed. IMPRESSION: Bipolar 1 disorder, mixed with OCD. PLAN: Continue current psychotropics. Adjust as indicated. MAN Uma JUSTIN MD DR: KARI/lore JOB#: [id number] / [id number]
[2017-05-28 06:35] VITALS: BP 120/73
[2017-05-28] MEDS: lamoTRIgine 100 MG TABLET. PO SCH (07:51)
[2017-05-28] MEDS: lamoTRIgine 150 MG TABLET. PO SCH (07:51)
[2017-05-28] MEDS: FERROUS SULFATE 325 MG TABLET. PO SCH (07:52)
[2017-05-28] MEDS: LOSARTAN 25 MG TABLET. PO SCH (07:52)
[2017-05-28] MEDS: CHOLECALCIFEROL (VITAMIN D3) 50,000 UNIT CAPSULE PO SCH (07:53)
[2017-05-28 16:00] VITALS: BP 116/77
[2017-05-28] MEDS: ATORVASTATIN CALCIUM 20 MG TABLET PO SCH (19:49)
[2017-05-28] MEDS: clonazePAM 1 MG TABLET PO SCH (19:51)
[2017-05-28] MEDS: QUEtiapine 50 MG TABLET. PO SCH (19:51)
--- NOTE | 2017-05-28 20:06 | PDOC ---
Exam Note: Luis Eduardo Note: Please also refer to the separate dictated note~for this date of service dictated separately.~Patient seen individually. Discussed the patient with Nursing staff reviewed the chart.~Reviewed interim history and current functioning. Reviewed vital signs,~Labs/ Radiology~and current medications noted below. Continue current treatment with the changes noted in the dictated addendum note Assessment: Vital Signs: Vital Signs Date Time Temp Pulse Resp B/P (MAP) Pulse Ox O2 Delivery O2 Flow Rate FiO2 05/28/17 16:00 98.7 70 16 116/77 (90) 98 05/25/17 16:19 Room Air I&O Intake and Output 05/28/17 07:00 Intake Total 1710 ml Balance 1710 ml Intake Oral 1710 ml Current Medications: Meds: Current Medications Acetaminophen (Tylenol) 650 mg PRN Q6HRS PRN PO PAIN / TEMP; Start 05/13/17 at 21:45 Multi-Ingredient Ointment (Analgesic [place]) 1 chris PRN QID PRN TP MUSCLE PAIN; Start 05/13/17 at 21:45 Al Hydroxide/Mg Hydroxide (Mylanta Plus Xs) 15 ml PRN AFTMEALHC PRN PO DYSPEPSIA; Start 05/13/17 at 21:45 Magnesium Hydroxide (Milk Of Magnesia) 2,400 mg PRN QHS PRN PO CONSTIPATION; Start 05/13/17 at 21:45 Losartan Potassium (Cozaar) 25 mg DAILY PO Last administered on 05/28/17at 07:52 ; Start 05/14/17 at 09:00 Atorvastatin Calcium (Lipitor) 20 mg HS PO Last administered on 05/28/17at 19:49 ; Start 05/14/17 at 21:00 Clonazepam (KlonoPIN) 0.5 mg DAILY PO Last administered on 05/14/17at 09:33; Start 05/14/17 at 09:00; Stop 05/14/17 at 19:12; Status DC Clonazepam (KlonoPIN) 1 mg QHS PO Last administered on 05/28/17at 19:51; Start 05/14/17 at 01:00 Quetiapine Fumarate (SEROquel) 25 mg PRN Q6HRS PRN PO ANXIETY / AGITATION; Start 05/14/17 at 00:30; Stop 05/14/17 at 19:12; Status DC Quetiapine Fumarate (SEROquel) 50 mg DAILY PO Last administered on 05/14/17at 09 :33; Start 05/14/17 at 09:00; Stop 05/14/17 at 19:12; Status DC Quetiapine Fumarate (SEROquel) 75 mg QHS PO ; Start 05/14/17 at 21:00; Stop at 21:00; Status DC Sertraline HCl (Zoloft) 75 mg DAILY PO Last administered on 05/21/17at 08:26; Start 05/14/17 at 09:00; Stop 05/21/17 at 18:36; Status DC Lamotrigine (LaMICtal) 200 mg DAILY PO Last administered on 05/19/17at 09:12; Start 05/14/17 at 09:00; Stop 05/19/17 at 20:05; Status DC Vitamin D (Vitamin D3) 50,000 unit WEEKLY PO Last administered on 05/28/17at 07: 53; Start 05/14/17 at 18:00 Quetiapine Fumarate (SEROquel) 25 mg PRN Q4HRS PRN PO ANXIETY / AGITATION; Start 05/14/17 at 19:15 Ferrous Sulfate (Feosol) 325 mg DAILYWBKFT PO Last administered on 05/28/17at 07 :52; Start 05/20/17 at 08:00 Lamotrigine (LaMICtal) 150 mg DAILY PO Last administered on 05/28/17at 07:51; Start 05/20/17 at 09:00 Lamotrigine (LaMICtal) 100 mg DAILY PO Last administered on 05/28/17at 07:51; Start 05/20/17 at 09:00 Quetiapine Fumarate (SEROquel) 50 mg QHS PO Last administered on 05/28/17at 19: 51; Start 05/19/17 at 21:00 Fluvoxamine Maleate (Luvox) 25 mg DAILY PO Last administered on 05/23/17at 08:05 ; Start 05/22/17 at 09:00; Stop 05/24/17 at 09:00; Status DC Fluvoxamine Maleate (Luvox) 50 mg DAILY PO Last administered on 05/25/17at 08:59 ; Start 05/24/17 at 09:00; Stop 05/25/17 at 21:00; Status DC Fluvoxamine Maleate (Luvox) 75 mg DAILY PO Last administered on 05/27/17at 07:59 ; Start 05/26/17 at 09:00; Stop 05/27/17 at 19:24; Status DC Fluvoxamine Maleate (Luvox) 100 mg QHS PO Last administered on 05/28/17at 19:51 ; Start 05/28/17 at 21:00 Active Scripts Active Reported Pravachol (Pravastatin Sodium) 80 Mg Tablet 80 Mg PO DAILY Seroquel (Quetiapine Fumarate) 25 Mg Tablet 25 Mg PO PRN Q6HRS PRN Seroquel (Quetiapine Fumarate) 50 Mg Tablet 75 Mg PO QHS Seroquel (Quetiapine Fumarate) 50 Mg Tablet 50 Mg PO DAILY Zoloft (Sertraline Hcl) 50 Mg Tablet 75 Mg PO DAILY Losartan Potassium 25 Mg Tablet 25 Mg PO DAILY Lamotrigine 200 Mg Tablet 200 Mg PO DAILY Clonazepam 1 Mg Tablet 1 Mg PO QHS Clonazepam 0.5 Mg Tablet 0.5 Mg PO DAILY I have reviewed the current psychotropics carefully including drug interactions. Risk benefit ratio favors no change other than as noted in my dictated progress note. Diagnosis: Problems: (1) Bipolar disorder, mixed (2) Bipolar affective, mixed, severe (3) Anxiety disorder LIZA JUSTIN MD May 28, 2017 20:06
--- NOTE | 2017-05-28 23:35 | PN ---
DATE: 05/27/2017 This late entry, 05/27/2017, covers elements not covered in my initial note 05/27/2017. Met with the patient in the evening of 05/27/2017 at length in his room. Overall, the patient is doing a little better, less anxious, still a little obsessive, but denies suicidal ideation. REVIEW OF SYSTEMS: No CV, , pulmonary, eye, ENT system symptoms on review. Reliability fair. MENTAL STATUS EXAM: Reasonably oriented. Speech coherent, abstraction fair, computation reasonable, language function intact, still somewhat anxious, dysphoric, but improved. No suicidal or homicidal ideation. LABORATORY DATA: Reviewed. IMPRESSION: Bipolar 1 disorder, depressed obsessive compulsive disorder. PLAN: Continue current psychotropics. Increase Luvox to 100 mg p.o. at bedtime, starting 05/28/2017, will change it from the daytime to the nighttime to help with slight sedation he experiences. Possible discharge on 05/29/2017 to outpatient treatment. LIZA JUSTIN MD DR: KARI/lore JOB#: [id number] / [id number]
[2017-05-29] MEDS ORDERED: ACET325T9 PO (00:21)
[2017-05-29] MEDS ORDERED: CHOL500021 PO (00:22)
[2017-05-29] MEDS ORDERED: FERR325T14 PO (00:23)
[2017-05-29] MEDS ORDERED: MAGN2400 PO (00:24)
[2017-05-29] MEDS ORDERED: MAG-83 PO (00:24)
[2017-05-29] MEDS ORDERED: METH29OI TP (00:25)
[2017-05-29] MEDS ORDERED: FLUV100T2 PO (00:28)
[2017-05-29] MEDS ORDERED: LAMO100T PO (00:29)
[2017-05-29] MEDS ORDERED: LAMO150T2 PO (00:29)
[2017-05-29 06:26] VITALS: BP 117/64
[2017-05-29 08:15] VITALS: BP 117/64
[2017-05-29] MEDS: FERROUS SULFATE 325 MG TABLET. PO SCH (08:15)
[2017-05-29] MEDS: lamoTRIgine 100 MG TABLET. PO SCH (08:15)
[2017-05-29] MEDS: lamoTRIgine 150 MG TABLET. PO SCH (08:15)
[2017-05-29] MEDS: LOSARTAN 25 MG TABLET. PO SCH (08:15)
--- NOTE | 2017-05-29 19:45 | PDOC ---
Exam Note: Luis Eduardo Note: Please also refer to the separate dictated note~for this date of service dictated separately.~Patient seen individually. Discussed the patient with Nursing staff reviewed the chart.~Reviewed interim history and current functioning. Reviewed vital signs,~Labs/ Radiology~and current medications noted below. Continue current treatment with the changes noted in the dictated addendum note Assessment: Vital Signs: Vital Signs Date Time Temp Pulse Resp B/P (MAP) Pulse Ox O2 Delivery O2 Flow Rate FiO2 05/29/17 08:15 58 117/64 05/29/17 06:26 97.2 20 98 Room Air I&O Intake and Output 05/29/17 07:00 Intake Total 2230 ml Balance 2230 ml Intake Oral 2230 ml Current Medications: Meds: Current Medications Acetaminophen (Tylenol) 650 mg PRN Q6HRS PRN PO PAIN / TEMP; Start 05/13/17 at 21:45; Stop 05/29/17 at 09:54; Status DC Multi-Ingredient Ointment (Analgesic [place]) 1 bjorn PRN QID PRN TP MUSCLE PAIN; Start 05/13/17 at 21:45; Stop 05/29/17 at 09:54; Status DC Al Hydroxide/Mg Hydroxide (Mylanta Plus Xs) 15 ml PRN AFTMEALHC PRN PO DYSPEPSIA; Start 05/13/17 at 21:45; Stop 05/29/17 at 09:54; Status DC Magnesium Hydroxide (Milk Of Magnesia) 2,400 mg PRN QHS PRN PO CONSTIPATION; Start 05/13/17 at 21:45; Stop 05/29/17 at 09:54; Status DC Losartan Potassium (Cozaar) 25 mg DAILY PO Last administered on 05/29/17at 08:15 ; Start 05/14/17 at 09:00; Stop 05/29/17 at 09:54; Status DC Atorvastatin Calcium (Lipitor) 20 mg HS PO Last administered on 05/28/17at 19:49 ; Start 05/14/17 at 21:00; Stop 05/29/17 at 09:54; Status DC Clonazepam (KlonoPIN) 0.5 mg DAILY PO Last administered on 05/14/17at 09:33; Start 05/14/17 at 09:00; Stop 05/14/17 at 19:12; Status DC Clonazepam (KlonoPIN) 1 mg QHS PO Last administered on 05/28/17at 19:51; Start 05/14/17 at 01:00; Stop 05/29/17 at 09:54; Status DC Quetiapine Fumarate (SEROquel) 25 mg PRN Q6HRS PRN PO ANXIETY / AGITATION; Start 05/14/17 at 00:30; Stop 05/14/17 at 19:12; Status DC Quetiapine Fumarate (SEROquel) 50 mg DAILY PO Last administered on 05/14/17at 09 :33; Start 05/14/17 at 09:00; Stop 05/14/17 at 19:12; Status DC Quetiapine Fumarate (SEROquel) 75 mg QHS PO ; Start 05/14/17 at 21:00; Stop at 21:00; Status DC Sertraline HCl (Zoloft) 75 mg DAILY PO Last administered on 05/21/17at 08:26; Start 05/14/17 at 09:00; Stop 05/21/17 at 18:36; Status DC Lamotrigine (LaMICtal) 200 mg DAILY PO Last administered on 05/19/17at 09:12; Start 05/14/17 at 09:00; Stop 05/19/17 at 20:05; Status DC Vitamin D (Vitamin D3) 50,000 unit WEEKLY PO Last administered on 05/28/17at 07: 53; Start 05/14/17 at 18:00; Stop 05/29/17 at 09:54; Status DC Quetiapine Fumarate (SEROquel) 25 mg PRN Q4HRS PRN PO ANXIETY / AGITATION; Start 05/14/17 at 19:15; Stop 05/29/17 at 09:54; Status DC Ferrous Sulfate (Feosol) 325 mg DAILYWBKFT PO Last administered on 05/29/17at 08 :15; Start 05/20/17 at 08:00; Stop 05/29/17 at 09:54; Status DC Lamotrigine (LaMICtal) 150 mg DAILY PO Last administered on 05/29/17at 08:15; Start 05/20/17 at 09:00; Stop 05/29/17 at 09:54; Status DC Lamotrigine (LaMICtal) 100 mg DAILY PO Last administered on 05/29/17at 08:15; Start 05/20/17 at 09:00; Stop 05/29/17 at 09:54; Status DC Quetiapine Fumarate (SEROquel) 50 mg QHS PO Last administered on 05/28/17at 19: 51; Start 05/19/17 at 21:00; Stop 05/29/17 at 09:54; Status DC Fluvoxamine Maleate (Luvox) 25 mg DAILY PO Last administered on 05/23/17at 08:05 ; Start 05/22/17 at 09:00; Stop 05/24/17 at 09:00; Status DC Fluvoxamine Maleate (Luvox) 50 mg DAILY PO Last administered on 05/25/17at 08:59 ; Start 05/24/17 at 09:00; Stop 05/25/17 at 21:00; Status DC Fluvoxamine Maleate (Luvox) 75 mg DAILY PO Last administered on 05/27/17at 07:59 ; Start 05/26/17 at 09:00; Stop 05/27/17 at 19:24; Status DC Fluvoxamine Maleate (Luvox) 100 mg QHS PO Last administered on 05/28/17at 19:51 ; Start 05/28/17 at 21:00; Stop 05/29/17 at 09:54; Status DC Active Scripts Active Reported Lamotrigine 100 Mg Tablet 100 Mg PO DAILY Lamotrigine 150 Mg Tablet 150 Mg PO DAILY Fluvoxamine Maleate 100 Mg Tablet 100 Mg PO QHS Analgesic [place] (Methyl Salicylate/Menthol) 28 Gm Oint...g. 1 Bjorn TP PRN Milk Of Magnesia (Magnesium Hydroxide) 2,400 Mg/10 Ml Oral.susp 2,400 Mg PO PRN QHS PRN Adv Antacid-[place] Liquid (Mag Hydrox/Al Hydrox/Simeth) 355 Ml Oral.susp 15 Ml PO PRN AFTMEALHC PRN Ferrous Sulfate 325 Mg Tablet 325 Mg PO DAILYWBKFT D3-50 (Cholecalciferol (Vitamin D3)) 50,000 Unit Capsule 50,000 Unit PO WEEKLYAC Tylenol (Acetaminophen) 325 Mg Tablet 650 Mg PO PRN Q6HRS PRN Pravachol (Pravastatin Sodium) 80 Mg Tablet 80 Mg PO DAILY Seroquel (Quetiapine Fumarate) 25 Mg Tablet 25 Mg PO PRN Q4HRS PRN Seroquel (Quetiapine Fumarate) 50 Mg Tablet 50 Mg PO HS Losartan Potassium 25 Mg Tablet 25 Mg PO DAILY Clonazepam 1 Mg Tablet 1 Mg PO QHS I have reviewed the current psychotropics carefully including drug interactions. Risk benefit ratio favors no change other than as noted in my dictated progress note. Diagnosis: Problems: (1) Bipolar disorder, mixed (2) Bipolar affective, mixed, severe (3) Anxiety disorder LIZA JUSTIN MD May 29, 2017 19:45
--- NOTE | 2017-05-29 23:29 | PN ---
DATE: 05/28/2017 PSYCHIATRIC PROGRESS NOTE This late entry 05/28/2016 covers elements, not covered in my initial note 05/28/2017. I met with the patient evening of 05/28/2017. Overall, the patient is reasonably oriented, somewhat anxious, but less obsessive. Tolerating the increase of Luvox. REVIEW OF SYSTEMS: No CV, , pulmonary, eye system symptoms on review. MENTAL STATUS EXAM: Reasonably oriented. Speech coherent, very verbal as I met with him at length in his room. He is less anxious. Mood and affect is improved. No active suicidal or homicidal ideation. Attention span fair. He states his mood swings are better as well. LABORATORY DATA: Reviewed. IMPRESSION: Bipolar 1 disorder, mixed obsessive compulsive disorder. PLAN: Continue current psychotropics. Change the Luvox and increase it to 100 mg p.o. at bedtime. Adjust further as clinically indicated. MAN Uma JUSTIN MD DR: KARI/lore JOB#: [id number] / [id number]
--- NOTE | 2017-05-31 22:43 | DS ---
DATE OF DISCHARGE: 05/29/2017 DISCHARGE SUMMARY/PSYCHIATRIC PROGRESS NOTE This is a late entry for 05/29/2017, covers elements not covered in my initial note of 05/29/2017. REASON FOR ADMISSION: Please refer to the admission history for details. Briefly, the patient is a 71-year-old male referred from [facility] where he presented on account of manic symptoms, rambling in his thoughts with visual hallucinations, increased confusion, and a failure of outpatient psychiatric intervention at the [facility] [[email or web address] The patient was having intense anxiety, obsessiveness, was quite manic and having intermittent hallucinations. Behaviors were deemed dangerous. Failed outpatient psychiatric interventions resulting in this referral. SIGNIFICANT FINDINGS AND CLINICAL COURSE: Following admission, the patient was seen daily individually by myself at length, followed medically per Dr. Khanna/Dr. Ho. Initially, the patient was quite obsessive, anxious, and labile in his mood. Adjustments were made in his psychotropics in a very controlled and deliberative manner and he seemed to respond to a combination of Klonopin 1 mg p.o. at bedtime, Luvox 100 mg at bedtime, Seroquel 25 mg every 4 hours p.r.n., lamotrigine 250 mg daily, and Seroquel 50 mg at bedtime. Gradually, his mood improved. He was less anxious, less obsessive and less labile in his mood. No suicidal or homicidal ideation prior to discharge. REVIEW OF SYSTEMS: Prior to discharge, no CV, , pulmonary, eye, ENT system symptoms on review. MENTAL STATUS EXAM: Reasonably oriented. Speech coherent, less pressured. Abstraction fair, computation reasonable, language function intact, attention span fair. Mood and affect appears improved. No suicidal or homicidal ideation at discharge. CONDITION AT DISCHARGE: Improved. FINAL DIAGNOSES: Bipolar 1 disorder, mixed with psychotic features, in partial remission; anxiety disorder, unspecified; obsessive compulsive disorder. Rest diagnoses unchanged from admission. DISCHARGE MEDICATIONS: Please refer to the MRAD. DISCHARGE INSTRUCTIONS: Outpatient psychiatric followup at the [facility] [[email or web address] and medical followup with his primary care physician. Time for discharge day management greater than 30 minutes. LIZA JUSTIN MD DR: KARI/lore JOB#: [id number] / [id number]
== END 2017-05-29 09:53 | disposition home or self-care (01) | DRG 885 ==
LOC: GEROPSY 19:59
PROVIDERS: ADMIT Psychiatry & Neurology Psychiatry; ATTEND Psychiatry & Neurology Psychiatry
DX: F31.64 Bipolar disorder, current episode mixed, severe, with psychotic features (principal); E43 Unspecified severe protein-calorie malnutrition; E11.22 Type 2 diabetes mellitus with diabetic chronic kidney disease; N18.9 Chronic kidney disease, unspecified; G47.00 Insomnia, unspecified; I12.9 Hypertensive chronic kidney disease with stage 1 through stage 4 chronic kidney disease, or unspecified chronic kidney disease; R39.11 Hesitancy of micturition; F41.9 Anxiety disorder, unspecified; F42.9 Obsessive-compulsive disorder, unspecified; Z88.8 Allergy status to other drugs, medicaments and biological substances; Z79.899 Other long term (current) drug therapy; Z88.1 Allergy status to other antibiotic agents; Z82.0 Family history of epilepsy and other diseases of the nervous system; Z82.49 Family history of ischemic heart disease and other diseases of the circulatory system; Z80.41 Family history of malignant neoplasm of ovary
CPT/HCPCS: 36415; 80053; 80061; 81001; 82306; 82607; 83036; 83540; 83550; 83735; 84436; 84443; 84480; 85025; 86593